=== PATIENT | male | born 1960 | race Caucasian/White ===

== ENCOUNTER 2016-05-02 15:10 | Observation (INO) | payer OTHER ==
--- NOTE | 2016-05-02 16:32 | ED PDOC ---
Arrival/HPI - General Historian: Patient - History of Present Illness Symptom Onset: Gradual Symptom Course: Worsening Activities at Onset: Rest <Muna Leone - Last Filed: 05/02/16 18:47> <Jameson Aguilar - Last Filed: 05/02/16 19:47> <Timothy Correia Dylan - Last Filed: 05/03/16 10:19> - General Chief Complaint: Abdominal Pain Time Seen by Provider: 05/02/16 15:48 - History of Present Illness Narrative History of Present Illness (Text): 05/02/16 16:24 56 M with no significant PMHx presented to [facility] ED with complaints of generalized weakness, sob, and LLQ abdominal pain. Pt states that he has been progressively feeling weaker over the past 3 months with associated LLQ pain that has also persisted for the past 3 months, however pt decided to come to ED today on account of episode of vomitting of nbnb emesis. He also noted that he has been experiencing black stools for the past 3 months. He also has complaints of rectal pain that also began approx 3 months ago. He describes a "pimple" near his rectum that seems to recur on a weekly basis, that "pops" and then comes back - this too was noticed at approximately 3 months ago. Pt admits to dizziness, headaches, nonproductive cough, loss of appetite, night sweats, llq pain and fatigue. Pt denied fever, chills, chest pains, palpitations, n/v/d/ c or urinary symptoms. PMHx: denies PSHx: Denies SHx: Lives in [place] with family, unemployed, admitted to [facility] x 40 yrs smoking tobacco history, Denied ETOH or illicit drug abuse Meds: Denies Allergies: NKDA No PMD (Muna Leone) Past Medical History - Infectious Disease Hx of Infectious Diseases: None - Cardiac Hx Cardiac Disorders: No - Pulmonary Hx Respiratory Disorders: No - Neurological Hx Neurological Disorder: No - HEENT Hx HEENT Disorder: No - Renal Hx Renal Disorder: No - Endocrine/Metabolic Hx Endocrine Disorders: No - Hematological/Oncological Hx Blood Disorders: No - Integumentary Hx Dermatological Disorder: No - Musculoskeletal/Rheumatological Hx Musculoskeletal Disorders: No - Gastrointestinal Hx Gastrointestinal Disorders: No - Genitourinary/Gynecological Hx Genitourinary Disorders: No - Psychiatric Hx Psychophysiologic Disorder: No Hx Substance Use: No - Anesthesia Hx Anesthesia: No Hx Anesthesia Reactions: No Hx Malignant Hyperthermia: No - Suicidal Assessment Feels Threatened In Home Enviroment: No <Muna Leone - Last Filed: 05/02/16 18:47> Family/Social History Family/Social History: No Known Family HX Smoking Status: Heavy Smoker > 10 Cigarettes Daily Hx Alcohol Use: No Hx Substance Use: No <Muna Leone - Last Filed: 05/02/16 18:47> Family/Social History: No Known Family HX <Timothy Correia Dylan - Last Filed: 05/03/16 10:19> Allergies/Home Meds <Muna Leone - Last Filed: 05/02/16 18:47> <Jameson Aguilar - Last Filed: 05/02/16 19:47> <Timothy Correia - Last Filed: 05/03/16 10:19> Allergies/Adverse Reactions: Allergies No Known Allergies Allergy (Verified 01/23/15 14:12) Review of Systems - Review of Systems Constitutional: Fatigue, Night Sweats Eyes: Normal ENT: Normal Respiratory: SOB, Cough Cardiovascular: Normal Gastrointestinal: Abdominal Pain (llq), Stool Changes, Nausea, Vomiting, Appetite Changes, Other (melena) Genitourinary Male: Normal Musculoskeletal: Normal Skin: Normal Neurological: Normal Endocrine: Normal Hemo/Lymphatic: Normal Psychiatric: Normal <Muna Leone - Last Filed: 05/02/16 18:47> Physical Exam Temperature: Afebrile Blood Pressure: Normal Pulse: Regular Respiratory Rate: Normal Appearance: Positive for: Well-Appearing, Non-Toxic, Comfortable Pain Distress: Mild Mental Status: Positive for: Alert and Oriented X 3 - Systems Exam Head: Present: Atraumatic, Normocephalic Pupils: Present: PERRL Extroacular Muscles: Present: EOMI Conjunctiva: Present: Normal Mouth: Present: Moist Mucous Membranes Neck: Present: Normal Range of Motion Respiratory/Chest: Present: Clear to Auscultation, Good Air Exchange. No: Respiratory Distress, Accessory Muscle Use Cardiovascular: Present: Regular Rate and Rhythm, Normal S1, S2. No: Murmurs Abdomen: Present: Normal Bowel Sounds. No: Tenderness, Distention, Peritoneal Signs Upper Extremity: Present: Normal Inspection. No: Cyanosis, Edema Lower Extremity: Present: Normal Inspection. No: Edema Neurological: Present: GCS=15, CN II-XII Intact, Speech Normal Skin: Present: Warm, Dry, Normal Color. No: Rashes Psychiatric: Present: Alert, Oriented x 3, Normal Insight, Normal Concentration <Muna Leone - Last Filed: 05/02/16 18:47> Vital Signs Temp Pulse Resp BP Pulse Ox 05/03/16 01:15 98.9 F 64 18 123/64 97 05/02/16 23:00 57 L 16 127/88 100 05/02/16 17:30 18 100 05/02/16 17:00 98.0 F 59 L 18 120/81 100 Medical Decision Making <Muna Leone - Last Filed: 05/02/16 18:47> <Jameson Aguilar - Last Filed: 05/02/16 19:47> <Timothy Correia - Last Filed: 05/03/16 10:19> ED Course and Treatment: 05/02/16 17:00 56 M presenting with generalized weakness, melena, and llq abdominal pains. -- CBC -- CMP -- Lipase -- IVF -- FOBT -- Zofran -- Protonix -- CT ABD with IV contrast -- EKG -- CXR -- UA/UCx -- Reassess and Dispo 05/02/16 18:10 Stool Guiac negative and routine labwork unremarkable. Pending CT Abdomen (Muna Leone) Seen and examined with resident. 56 y/o M p/w abdominal pain and black stool x months. Guaiac negative. Hb normal. Pending CT. Signed out to ER night team at change of shift. (Timothy Correia) - Lab Interpretations Lab Results: 05/02/16 17:45 05/02/16 17:45 Lab Results 05/02/16 17:45: WBC 9.3, RBC 4.76, Hgb 15.5, Hct 44.4, MCV 93.3, MCH 32.6, MCHC 34.9, RDW 12.9, Plt Count 295, MPV 8.8, Gran % 67.1, Lymph % (Auto) 27.2, Calvert % (Auto) 4.3, Eos % (Auto) 0.9 L, Baso % (Auto) 0.5, Gran # 6.21, Lymph # 2.5, Calvert # 0.4, Eos # 0.1, Baso # 0.05, Sodium 137, Potassium 4.2, Chloride 101, Carbon Dioxide 27, Anion Gap 13, BUN 23 H, Creatinine 0.9, Est GFR ( Amer ) > 60, Est GFR (Non-Af Amer) > 60, Random Glucose 98, Calcium 9.2, Total Bilirubin 1.1, AST 22, ALT 13, Alkaline Phosphatase 87, Total Protein 7.5, Albumin 3.9, Globulin 3.6, Albumin/Globulin Ratio 1.1, Lipase 126 - RAD Interpretation Radiology Orders: 05/02/16 16:46 ABDOMEN & PELVIS [ABD & PELVIS IV CONTRAST ONLY] [CT] Stat CHEST PORTABLE [RAD] Stat - EKG Interpretation EKG Interpretation (Text): 05/02/16 18:03 Sinus bradycardia with 55bpm with no ST changes (Vasu,Manit) - Medication Orders Current Medication Orders: Sodium Chloride (Sodium Chloride 0.9%) 1,000 mls @ 100 mls/hr IV .Q10H [facility] Last Admin: 05/03/16 01:34 Dose: 100 MLS/HR eMAR Start Stop Document 05/03/16 01:34 DALE (Rec: 05/03/16 01:34 Marilyn [id number]) Intravenous Solution Start Date 05/03/16 Start Time 01:34 Metoclopramide HCl (Reglan) 5 mg IVP ACHS [facility] Last Admin: 05/03/16 09:40 Dose: 5 MG IVP Administration Document 05/03/16 09:40 KAA (Rec: 05/03/16 09:40 KAA [id number]) Charges for Administration # of IVP Administrations 1 Ondansetron HCl (Zofran Inj) 4 mg IVP Q6H PRN PRN Reason: Nausea/Vomiting Pantoprazole Sodium (Protonix Inj) 40 mg IVP Q12 [facility] Last Admin: 05/03/16 09:44 Dose: 40 MG IVP Administration Document 05/03/16 09:44 KAA (Rec: 05/03/16 09:44 KAA [id number]) Charges for Administration # of IVP Administrations 1 Tramadol HCl (Ultram) 50 mg PO TID PRN PRN Reason: Pain, moderate (4-7) Discontinued Medications Bisacodyl (Dulcolax) 10 mg RC ONCE ONE Stop: 05/03/16 00:53 Last Admin: 05/03/16 01:43 Dose: Not Given Non-Admin Reason: Patient Refused Sodium Chloride (Sodium Chloride 0.9%) 1,000 mls @ 999 mls/hr IV .Q1H1M STA Stop: 05/02/16 17:46 Last Admin: 05/02/16 18:05 Dose: 999 MLS/HR eMAR Start Stop Document 05/02/16 18:05 EQ (Rec: 05/02/16 18:05 EQ [id number]) Intravenous Solution Start Date 05/02/16 Start Time 18:05 Iohexol (Omnipaque 350 100 Ml) Confirm Administered Dose 350 mg .ROUTE .STK-MED ONE Stop: 05/02/16 18:26 Ondansetron HCl (Zofran Inj) 4 mg IVP STAT STA Stop: 05/02/16 16:47 Last Admin: 05/02/16 18:05 Dose: 4 MG IVP Administration Document 05/02/16 18:05 EQ (Rec: 05/02/16 18:05 EQ [id number]) Charges for Administration # of IVP Administrations 1 Pantoprazole Sodium (Protonix Inj) 40 mg IVP STAT STA Stop: 05/02/16 16:47 Last Admin: 05/02/16 18:05 Dose: 40 MG IVP Administration Document 05/02/16 18:05 EQ (Rec: 05/02/16 18:05 EQ [id number]) Charges for Administration # of IVP Administrations 1 Polyethylene Glycol (Miralax) 17 gm PO STAT STA Stop: 05/03/16 00:53 Last Admin: 05/03/16 02:53 Dose: 17 GM Disposition/Present on Arrival - Present on Arrival Any Indicators Present on Arrival: No History of DVT/PE: No History of Uncontrolled Diabetes: No Urinary Catheter: No History of Decub. Ulcer: No History Surgical Site Infection Following: None <Muna Leone - Last Filed: 05/02/16 18:47> <Jameson Aguilar - Last Filed: 05/02/16 19:47> - Disposition Have Diagnosis and Disposition been Completed?: Yes Disposition Time: 19:00 <Timothy Correia - Last Filed: 05/03/16 10:19> - Disposition Diagnosis: Abdominal pain, Vomiting Disposition: HOSPITALIZED Patient Problems: Current Active Problems Problem Status Diagnosed Abdominal pain Acute Vomiting Acute Condition: STABLE
[2016-05-02] MEDS ORDERED: Sodium Chloride 0.9% 1,000 ML IV STA (16:46)
[2016-05-02 17:53] LABS: ADD MANUAL DIFF? NO
[2016-05-02 17:57] LABS: BASO # 0.05 K/mm3 (0.0-2.0); BASO % 0.5 % (0.0-3.0); EOS # 0.1 (0.0-0.7); EOS % 0.9 % (1.5-5.0); GRAN # 6.21 (1.4-6.5); GRAN % 67.1 % (50.0-68.0); HEMATOCRIT 44.4 % (42.0-52.0); LYMPH # 2.5 (1.2-3.4); LYMPH % 27.2 % (22.0-35.0); MEAN CELL VOLUME 93.3 fL (80.0-105.0); MEAN CORPUSCULAR HEMOGLOBIN 32.6 pg (25.0-35.0); MEAN CORPUSCULAR HGB CONC 34.9 g/dl (31.0-37.0); MEAN PLATELET VOLUME 8.8 fl (7.0-11.0); MONO # 0.4 (0.1-0.6); MONO % 4.3 % (1.0-6.0); PLATELET COUNT 295 10^3/uL (120.0-450.0); RED CELL DISTRIBUTION WIDTH 12.9 % (11.5-14.5); WHITE BLOOD COUNT 9.3 10^3/ul (4.5-11.0)
[2016-05-02 18:07] LABS: ALB/GLOB RATIO 1.1 (1.1-1.8); ALKALINE PHOSPHATASE 87 U/L (38-133); ALT/SGPT 13 U/L (7-56); AST/SGOT 22 U/L (15-59); BILIRUBIN,TOTAL 1.1 mg/dL (0.2-1.3); BLOOD UREA NITROGEN 23 mg/dL (7-21); CALCIUM 9.2 mg/dL (8.4-10.5); CARBON DIOXIDE 27 mmol/L (21-33); CHLORIDE 101 mmol/L (98-107); GFR AFRICAN-AMERICAN > 60; GLUCOSE,RANDOM 98 mg/dL (70-110); LIPASE 126 U/L (23-300); POTASSIUM 4.2 mmol/L (3.6-5.0); SODIUM 137 mmol/L (132-148); TOTAL PROTEIN 7.5 g/dL (5.8-8.3)
[2016-05-02] MEDS ORDERED: Iohexol 350 MG/100 ML VIAL ONE (18:25)
--- NOTE | 2016-05-02 19:30 | CARD ---
APPROVED REPORT EKG Measurement Heart [id number] <Conclusion> Sinus bradycardia Otherwise normal ECG
--- NOTE | 2016-05-02 20:50 | CT ---
EXAM: CT Abdomen and Pelvis With Intravenous Contrast. CLINICAL HISTORY: 56 years old, male; Pain; Abdominal pain; Localized; Left lower quadrant (llq); Additional info: Llq pain TECHNIQUE: Axial computed tomography images of the abdomen and pelvis with intravenous contrast. This CT exam was performed using one or more of the following dose reduction techniques: automated exposure control, adjustment of the mA and/or kV according to patient size, and/or use of iterative reconstruction technique. Coronal and sagittal reformatted images were created and reviewed. CONTRAST: 95 mL of omni 350 administered intravenously. EXAM DATE/TIME: 05/02/2016 4:46 PM COMPARISON: There are no prior studies for comparison. FINDINGS: Artifacts: Motion artifact degrades image quality. Lower thorax: Heart size is normal. There are coronary calcifications. There is minimal atelectasis and scarring at the lung bases. ABDOMEN: Liver: There is fatty infiltration of the liver. Gallbladder and bile ducts: unremarkable Pancreas: unremarkable Spleen: unremarkable Adrenals: unremarkable Kidneys and ureters: unremarkable Stomach and bowel: Stomach is incompletely distended. Rotation is normal. Small bowel is mildly distended with air. There is no obstruction. Appendix is unremarkable. Streak and motion limit evaluation of the colon. Colon is incompletely distended which limits evaluation. There is scattered diverticulosis Appendix: See stomach and bowel PELVIS: Bladder: unremarkable Reproductive: Prostate is mildly enlarged. Seminal vesicles are unremarkable. ABDOMEN and PELVIS: Intraperitoneal space: There is no free fluid.There is no free air. Bones/joints: There is compression fracture L1 with deformity of superior endplate. There degenerative changes greatest in the lower lumbar spine. Soft tissues: There is a nonobstructing left inguinal hernia containing colon. Vasculature: There are calcified phleboliths. Vascular structures are unremarkable. Lymph nodes: There is no pathologic adenopathy. IMPRESSION: Limited by streak and motion, no CT findings of appendicitis or diverticulitis; mildly distended small bowel more suggestive of ileus than obstruction; no acute solid visceral abnormality; L1 compression fracture, age indeterminant Additional findings as described above.
--- NOTE | 2016-05-02 21:29 | ED PDOC ---
Physical Exam Vital Signs Reviewed: Yes Vital Signs Temp Pulse Resp BP Pulse Ox 05/02/16 23:00 57 L 16 127/88 100 05/02/16 17:30 18 100 05/02/16 17:00 98.0 F 59 L 18 120/81 100 Temperature: Afebrile Blood Pressure: Normal Pulse: Regular Respiratory Rate: Normal Appearance: Positive for: Well-Appearing, Non-Toxic, Comfortable Pain Distress: None Mental Status: Positive for: Alert and Oriented X 3 Medical Decision Making ED Course and Treatment: 05/02/16 19:00 Case endorsed to me by Dr. Correia. Pt, no significant past medical history, presented for generalized weakness, melena, and LLQ abdominal pain. Pending CT Abdomen and Pelvis, re-assessment, and final disposition. 05/02/16 22:20 Reviewed radiology, CT Abdomen and Pelvis shows: Limited by streak and motion, no CT findings of appendicitis or diverticulitis; mildly distended small bowel more suggestive of ileus than obstruction; no acute solid visceral abnormality; L1 compression fracture, age indeterminant Additional findings as described above. 05/03/16 00:07 Case discussed with medical coding technician configuration management administrator, who is aware and agrees with plan. House physician paged. Case discussed with Dr. Costa, who is aware and agrees with plan. Accepts pt in to hospitalist service. Pt will go to [facility] observation for abdominal pain and vomiting. Pt is no acute distress. Discussed results and hospital observation plan with pt , who is aware and verbalizes understanding. - Lab Interpretations Lab Results: 05/02/16 17:45 05/02/16 17:45 Lab Results 05/02/16 17:45: WBC 9.3, RBC 4.76, Hgb 15.5, Hct 44.4, MCV 93.3, MCH 32.6, MCHC 34.9, RDW 12.9, Plt Count 295, MPV 8.8, Gran % 67.1, Lymph % (Auto) 27.2, Mccone % (Auto) 4.3, Eos % (Auto) 0.9 L, Baso % (Auto) 0.5, Gran # 6.21, Lymph # 2.5, Mccone # 0.4, Eos # 0.1, Baso # 0.05, Sodium 137, Potassium 4.2, Chloride 101, Carbon Dioxide 27, Anion Gap 13, BUN 23 H, Creatinine 0.9, Est GFR ( Amer ) > 60, Est GFR (Non-Af Amer) > 60, Random Glucose 98, Calcium 9.2, Total Bilirubin 1.1, AST 22, ALT 13, Alkaline Phosphatase 87, Total Protein 7.5, Albumin 3.9, Globulin 3.6, Albumin/Globulin Ratio 1.1, Lipase 126 - RAD Interpretation Narrative RAD Interpretations (Text): CT Abdomen and Pelvis shows: Artifacts: Motion artifact degrades image quality. Lower thorax: Heart size is normal. There are coronary calcifications. There is minimal atelectasis and scarring at the lung bases. ABDOMEN: Liver: There is fatty infiltration of the liver. Gallbladder and bile ducts: unremarkable Pancreas: unremarkable Spleen: unremarkable Adrenals: unremarkable Kidneys and ureters: unremarkable Stomach and bowel: Stomach is incompletely distended. Rotation is normal. Small bowel is mildly distended with air. There is no obstruction. Appendix is unremarkable. Streak and motion limit evaluation of the colon. Colon is incompletely distended which limits evaluation. There is scattered diverticulosis Appendix: See stomach and bowel PELVIS: Bladder: unremarkable Reproductive: Prostate is mildly enlarged. Seminal vesicles are unremarkable. ABDOMEN and PELVIS: Intraperitoneal space: There is no free fluid.There is no free air. Bones/joints: There is compression fracture L1 with deformity of superior endplate. There degenerative changes greatest in the lower lumbar spine. Soft tissues: There is a nonobstructing left inguinal hernia containing colon. Vasculature: There are calcified phleboliths. Vascular structures are unremarkable. Lymph nodes: There is no pathologic adenopathy. IMPRESSION: Limited by streak and motion, no CT findings of appendicitis or diverticulitis; mildly distended small bowel more suggestive of ileus than obstruction; no acute solid visceral abnormality; L1 compression fracture, age indeterminant Additional findings as described above. Radiology Orders: 05/02/16 16:46 ABDOMEN & PELVIS [ABD & PELVIS IV CONTRAST ONLY] [CT] Stat CHEST PORTABLE [RAD] Stat Hydroelectric Plant Operator: Radiologist - Medication Orders Current Medication Orders: Discontinued Medications Sodium Chloride (Sodium Chloride 0.9%) 1,000 mls @ 999 mls/hr IV .Q1H1M STA Stop: 05/02/16 17:46 Last Admin: 05/02/16 18:05 Dose: 999 MLS/HR eMAR Start Stop Document 05/02/16 18:05 EQ (Rec: 05/02/16 18:05 EQ [id number]) Intravenous Solution Start Date 05/02/16 Start Time 18:05 Iohexol (Omnipaque 350 100 Ml) Confirm Administered Dose 350 mg .ROUTE .STK-MED ONE Stop: 05/02/16 18:26 Ondansetron HCl (Zofran Inj) 4 mg IVP STAT STA Stop: 05/02/16 16:47 Last Admin: 05/02/16 18:05 Dose: 4 MG IVP Administration Document 05/02/16 18:05 EQ (Rec: 05/02/16 18:05 EQ [id number]) Charges for Administration # of IVP Administrations 1 Pantoprazole Sodium (Protonix Inj) 40 mg IVP STAT STA Stop: 05/02/16 16:47 Last Admin: 05/02/16 18:05 Dose: 40 MG IVP Administration Document 05/02/16 18:05 EQ (Rec: 05/02/16 18:05 EQ [id number]) Charges for Administration # of IVP Administrations 1 Disposition/Present on Arrival - Present on Arrival Any Indicators Present on Arrival: No History of DVT/PE: No History of Uncontrolled Diabetes: No Urinary Catheter: No History of Decub. Ulcer: No History Surgical Site Infection Following: None - Disposition Have Diagnosis and Disposition been Completed?: Yes Diagnosis: Abdominal pain, Vomiting Disposition: HOSPITALIZED Disposition Time: 23:49 Patient Plan: Observation Patient Problems: Current Active Problems Problem Status Diagnosed Abdominal pain Acute Vomiting Acute Condition: STABLE Referrals: PCP,NO [Primary Care Provider] - Follow up with primary
[2016-05-03] MEDS ORDERED: POLYETHYLENE GLYCOL 3350 17 GM/Dose PACKET PO STA (00:52)
[2016-05-03] MEDS ORDERED: Sodium Chloride 0.9% 1,000 ML IV SCH (01:00)
[2016-05-03 03:53] VITALS: RESP 20; BMI 18.4
--- NOTE | 2016-05-03 06:59 | CP.PCM.HP ---
History of Present Illness - History of Present Illness History of Present Illness: CC: weakness, abd pain, emesis HPI: This is a 56 yo [place] M with no significant PMH who presented general weakness, abdominal pain, and 1 episode of non-bloody non-bilious emesis. He complains of general poor appetite, constipation, intermittently dark stools, and intermittent rectal pain, but denies blood with stool. He denies chest pain , shortness of breath or pain with breathing, emesis prior to day of presentation, or focal weakness. He denies taking any medications to help with the constipation. Reports he moved his bowels today, last BM before was 4-5 days prior. Normally moves his bowels every 3-4 days. Denies dysuria, hematuria. PMHx: Denies PSHx: Denies SHx: Admits tobacco (cigarettes 1 ppd x 40 yrs), Denies ETOH/illicits PMD: None Present on Admission - Present on Admission Any Indicators Present on Admission: No History of DVT/PE: No History of Uncontrolled Diabetes: No Review of Systems - Constitutional Constitutional: Weakness. absent: Chills, Fever - EENT Eyes: absent: Blurred Vision, Change in Vision, Loss of Vision Ears: absent: Dizziness Nose/Mouth/Throat: absent: Sore Throat, Neck Pain - Cardiovascular Cardiovascular: absent: Chest Pain, Dyspnea, Syncope - Respiratory Respiratory: absent: Cough, Dyspnea, Pain on Inspiration - Gastrointestinal Gastrointestinal: Abdominal Pain (diffuse, more prominent today), Constipation ( BM today, last 4-5 days prior, normally 3-4 days per BM, hard black stools), Nausea, Vomiting (1x episode non-bloody, non-bilious; no prior episodes). absent: Diarrhea, Hematochezia, Melena - Genitourinary Genitourinary: absent: Difficulty Urinating, Dysuria, Flank Pain, Hematuria - Musculoskeletal Musculoskeletal: absent: Back Pain, Numbness, Radiating Pain into Limb - Integumentary Integumentary: absent: Pruritus, Rash - Neurological Neurological: Weakness. absent: Dizziness, Focal Weakness, Loss of Vision, Syncope, Other Visual Disturbances - Psychiatric Psychiatric: Anxiety - Endocrine Endocrine: absent: Fatigue, Palpitations Past Patient History - Infectious Disease Hx of Infectious Diseases: None - Past Social History Smoking Status: Current Some Days Smoker - CARDIAC Hx Cardiac Disorders: No - PULMONARY Hx Respiratory Disorders: No - NEUROLOGICAL Hx Neurological Disorder: No - HEENT Hx HEENT Problems: No - RENAL Hx Chronic Kidney Disease: No - ENDOCRINE/METABOLIC Hx Endocrine Disorders: No - HEMATOLOGICAL/ONCOLOGICAL Hx Blood Disorders: No - INTEGUMENTARY Hx Dermatological Problems: No - MUSCULOSKELETAL/RHEUMATOLOGICAL Hx Falls: No - GASTROINTESTINAL Hx Gastrointestinal Disorders: No - GENITOURINARY/GYNECOLOGICAL Hx Genitourinary Disorders: No - PSYCHIATRIC Hx Psychophysiologic Disorder: No - SURGICAL HISTORY Hx Surgeries: No - ANESTHESIA Hx Anesthesia: No Hx Anesthesia Reactions: No Hx Malignant Hyperthermia: No Meds Allergies/Adverse Reactions: Allergies Allergy/AdvReac Type Severity Reaction Status Date / Time No Known Allergies Allergy Verified 01/23/15 14:12 Physical Exam - Constitutional Appears: Well, Non-toxic, No Acute Distress - Head Exam Head Exam: ATRAUMATIC, NORMAL INSPECTION, NORMOCEPHALIC - Eye Exam Eye Exam: EOMI, Normal appearance, PERRL. absent: Conjunctival injection, Scleral icterus Pupil Exam: NORMAL ACCOMODATION, PERRL. absent: Fixed, Irregular, Unequal - ENT Exam ENT Exam: Mucous Membranes Moist - Neck Exam Neck exam: Positive for: Full Rom - Respiratory Exam Respiratory Exam: Clear to Auscultation Bilateral, NORMAL BREATHING PATTERN. absent: Accessory Muscle Use, Chest Wall Tenderness, Decreased Breath Sounds, Rales, Rhonchi, Wheezes - Cardiovascular Exam Cardiovascular Exam: REGULAR RHYTHM, RRR, +S1, +S2. absent: Bradycardia, Tachycardia, Irregular Rhythm, +S4 - GI/Abdominal Exam GI & Abdominal Exam: Firm (mutiple palpable/discrete loops of bowel), Normal Bowel Sounds, Soft, Tenderness (diffuse tenderness to palpation, more prominent on the left side; no flank pain bilaterally). absent: Diminished Bowel Sounds, Distended, Hyperactive Bowel Sounds, Hypoactive Bowel Sounds, Rigid - Extremities Exam Extremities exam: Positive for: normal capillary refill, normal inspection, pedal pulses present. Negative for: calf tenderness, pedal edema, tenderness - Back Exam Back exam: absent: CVA tenderness (L), CVA tenderness (R), tenderness, vertebral tenderness - Neurological Exam Neurological exam: Alert, Oriented x3 - Psychiatric Exam Psychiatric exam: Anxious, Normal Affect - Skin Skin Exam: Dry, Intact, Normal Color, Warm Additional comments: not diaphoretic Results - Vital Signs Recent Vital Signs: Last Vital Signs Temp 97.9 F 03/23/17 03:35 Pulse 53 L 05/03/16 03:35 Resp 20 05/03/16 03:35 BP 100/60 05/03/16 03:35 Pulse Ox 97 05/03/16 01:15 - Labs Result Diagrams: 05/02/16 17:45 05/02/16 17:45 Assessment & Plan - Assessment and Plan (Free Text) Assessment: This is a 56 yo [place] M with no significant PMH who presented general weakness , abdominal pain, and 1 episode of non-bloody non-bilious emesis. He is being admitted for chronic abdominal pain and constipation with new onset emesis. Plan: 1) Abdominal pain with new onset emesis -diverticulitis vs 2/2 constipation vs obstruction vs appendicitis -CT abd/pelvis obtained in ED, notable for distended small bowel more likely ileus than obstruction, no acute solid visceral abnormality/diverticulitis/ appendicitis -Dulcolax suppository x1, Miralax 17g daily -Reglan for ileus, Zofran PRN for nausea/emesis -NPO for bowel rest, NS IVF at 100cc/hr -Ultram PRN for pain, avoid stronger opioids due to worsening of ileus/ constipation -Protonix IV q12 -guaic negative, and Hgb 15.5 with normal MCV, so unlikely GI bleeding -LFTs wnl Dispo: Med/Surg obs, bowel rest and med regimen to relieve constipation FEN: NPO for bowel rest, NS IVF 100cc/hr Access: Peripheral IV Consult: N/A Ppx: Protonix for GI, SCDs for DVT Patient seen, reviewed, and discussed with attending, Dr. Costa. - Date & Time Date: 05/03/16 Time: 07:40 Decision To Admit - Pt Status Changed To: Hospital Disposition Of: Observation - . Bed Request Type: Med/Surg
--- NOTE | 2016-05-03 08:26 | RAD ---
HISTORY: sob COMPARISON: No prior. FINDINGS: LUNGS: No active pulmonary disease. PLEURA: No significant pleural effusion identified, no pneumothorax apparent. CARDIOVASCULAR: Normal. OSSEOUS STRUCTURES: No significant abnormalities. VISUALIZED UPPER ABDOMEN: Normal. OTHER FINDINGS: None. IMPRESSION: No evidence of acute pulmonary disease. Baseline study. If indicated further assessment by CT may be obtained.
[2016-05-03 08:48] LABS: ADD MANUAL DIFF? NO
[2016-05-03 08:52] LABS: BASO # 0.05 K/mm3 (0.0-2.0); BASO % 0.7 % (0.0-3.0); EOS # 0.1 (0.0-0.7); EOS % 1.5 % (1.5-5.0); GRAN # 4.98 (1.4-6.5); GRAN % 66.2 % (50.0-68.0); LYMPH % 26.1 % (22.0-35.0); MEAN CELL VOLUME 94.3 fL (80.0-105.0); MEAN CORPUSCULAR HGB CONC 33.9 g/dl (31.0-37.0); MEAN PLATELET VOLUME 8.7 fl (7.0-11.0); MONO # 0.4 (0.1-0.6); MONO % 5.5 % (1.0-6.0); PLATELET COUNT 262 10^3/uL (120.0-450.0); WHITE BLOOD COUNT 7.5 10^3/ul (4.5-11.0)
[2016-05-03 08:54] VITALS: BP 105/65; PULSE 55; TEMP 97.5; O2SAT 98
[2016-05-03 09:28] LABS: ALB/GLOB RATIO 1.1 (1.1-1.8); ALKALINE PHOSPHATASE 75 U/L (38-133); ALT/SGPT 13 U/L (7-56); AST/SGOT 19 U/L (15-59); BILIRUBIN,TOTAL 1.5 mg/dL (0.2-1.3); BLOOD UREA NITROGEN 17 mg/dL (7-21); CALCIUM 8.2 mg/dL (8.4-10.5); CARBON DIOXIDE 25 mmol/L (21-33); CHLORIDE 106 mmol/L (98-107); GFR AFRICAN-AMERICAN > 60; GLUCOSE,RANDOM 84 mg/dL (70-110); MAGNESIUM 2.1 mg/dL (1.7-2.2); PHOSPHOROUS 3.4 mg/dL (2.5-4.5); POTASSIUM 4.6 mmol/L (3.6-5.0); SODIUM 139 mmol/L (132-148); TOTAL PROTEIN 6.6 g/dL (5.8-8.3)
--- NOTE | 2016-05-03 17:33 | CP.PCM.DIS ---
<Maciej Penny - Last Filed: 05/05/16 21:33> Provider - Provider Date of Admission: 05/02/16 23:50 Attending physician: Nany Templeton MD Primary care physician: NO PRIMARY CARE PROVIDER Time Spent in preparation of Discharge (in minutes): 45 Hospital Course - Lab Results Lab Results: Most Recent Lab Values WBC 7.5 10^3/ul (4.5-11.0) 05/03/16 08:40 RBC 4.35 10^6/uL (3.5-6.1) 05/03/16 08:40 Hgb 13.9 gm/dL (14.0-18.0) L 05/03/16 08:40 Hct 41.0 % (42.0-52.0) L 05/03/16 08:40 MCV 94.3 fL (80.0-105.0) 05/03/16 08:40 MCH 32.0 pg (25.0-35.0) 05/03/16 08:40 MCHC 33.9 g/dl (31.0-37.0) 05/03/16 08:40 RDW 13.0 % (11.5-14.5) 05/03/16 08:40 Plt Count 262 10^3/uL (120.0-450.0) 05/03/16 08:40 MPV 8.7 fl (7.0-11.0) 05/03/16 08:40 Gran % 66.2 % (50.0-68.0) 05/03/16 08:40 Lymph % (Auto) 26.1 % (22.0-35.0) 05/03/16 08:40 [place] % (Auto) 5.5 % (1.0-6.0) 05/03/16 08:40 Eos % (Auto) 1.5 % (1.5-5.0) 05/03/16 08:40 Baso % (Auto) 0.7 % (0.0-3.0) 05/03/16 08:40 Gran # 4.98 (1.4-6.5) 05/03/16 08:40 Lymph # 2.0 (1.2-3.4) 05/03/16 08:40 [place] # 0.4 (0.1-0.6) 05/03/16 08:40 Eos # 0.1 (0.0-0.7) 05/03/16 08:40 Baso # 0.05 K/mm3 (0.0-2.0) 05/03/16 08:40 Sodium 139 mmol/L (132-148) 05/03/16 08:40 Potassium 4.6 mmol/L (3.6-5.0) 05/03/16 08:40 Chloride 106 mmol/L (98-107) 05/03/16 08:40 Carbon Dioxide 25 mmol/L (21-33) 05/03/16 08:40 Anion Gap 13 (10-20) 05/03/16 08:40 BUN 17 mg/dL (7-21) 05/03/16 08:40 Creatinine 0.8 mg/dL (0.5-1.4) 05/03/16 08:40 Est GFR ( Amer) > 60 05/03/16 08:40 Est GFR (Non-Af Amer) > 60 05/03/16 08:40 Random Glucose 84 mg/dL (70-110) 05/03/16 08:40 Calcium 8.2 mg/dL (8.4-10.5) L 05/03/16 08:40 Phosphorus 3.4 mg/dL (2.5-4.5) 05/03/16 08:40 Magnesium 2.1 mg/dL (1.7-2.2) 05/03/16 08:40 Total Bilirubin 1.5 mg/dL (0.2-1.3) H 05/03/16 08:40 AST 19 U/L (15-59) 05/03/16 08:40 ALT 13 U/L (7-56) 05/03/16 08:40 Alkaline Phosphatase 75 U/L (38-133) 05/03/16 08:40 Total Protein 6.6 g/dL (5.8-8.3) 05/03/16 08:40 Albumin 3.4 g/dL (3.0-4.8) 05/03/16 08:40 Globulin 3.2 gm/dL 05/03/16 08:40 Albumin/Globulin Ratio 1.1 (1.1-1.8) 05/03/16 08:40 Lipase 126 U/L (23-300) 05/02/16 17:45 - Hospital Course Hospital Course: Upon Admission: 56 yo [place] M with no significant PMH who presented general weakness, abdominal pain, and 1 episode of non-bloody non-bilious emesis. Patient reported poor appetite, constipation, intermittent dark stools and rectal pain for 3 months. In the ED, CT abdomen/pelvis showed questionable ileus. Patient was kept NPO overnight. The next morning he reported passing flatus. Clear liquid diet was started and patient reported abdominal pain had resolved and he was able to tolerate PO with no additional complaints. He had normal BM with no complaints. Stool was normal in caliber with no hematochezia. Rectal pain was evaluated with MINDI and revealed no mass and no blood. Patient states intermittent discharge perirectal in the past; no evidence of abscess or collection at this time. Patient was told to follow up with outpatient GI. Patient was deemed stable for discharge with close outpatient followup with PMD. Patient to return to [facility] and told to follow up with GI for outpatient screening colonoscopy. Patient understands and agrees with plan and all questions were answered. 1) Abdominal pain: resolved. Follow up with GI for outpatient screening colonoscopy. Upon Discharge: Patient is discharged as per Dr. Templeton 1. Follow up with [facility] clinic within one week. Call for appointment 2. Follow up with GI clinic, Dr. Hernandez, call for appointment 3. Advance diet slowly as tolerated. Zofran 4mg q6h prn nausea ordered. (Sent to [facility] pharmacy) 4. Return to the ER with any concerning symptoms New Prescriptions: Zofran 4mg q6h prn Nausea #20/0 Miralax 17g in 4-8oz of water PO once Daily for 5 days Discharge Exam - Head Exam Head Exam: ATRAUMATIC, NORMAL INSPECTION, NORMOCEPHALIC - Eye Exam Eye Exam: EOMI, Normal appearance, PERRL. absent: Scleral icterus Pupil Exam: PERRL - ENT Exam ENT Exam: Mucous Membranes Moist - Respiratory Exam Respiratory Exam: Clear to PA & Lateral, NORMAL BREATHING PATTERN, UNREMARKABLE. absent: Wheezes, Respiratory Distress - Cardiovascular Exam Cardiovascular Exam: REGULAR RHYTHM, RRR, +S1, +S2. absent: JVD - GI/Abdominal Exam GI & Abdominal Exam: Normal Bowel Sounds, Soft, Unremarkable. absent: Tenderness - Rectal Exam Rectal Exam: NORMAL INSPECTION. absent: Black Stool Additional comments: No Masses. No discharge - Extremities Exam Extremities exam: normal inspection - Back Exam Back exam: NORMAL INSPECTION - Neurological Exam Neurological exam: Alert, CN II-XII Intact, Oriented x3, Reflexes Normal - Psychiatric Exam Psychiatric exam: Normal Affect, Normal Mood - Skin Skin Exam: Dry, Intact, Normal Color, Warm Discharge Plan - Discharge Medications Prescriptions: Polyethylene Glycol 3350 [Miralax] 17 gm PO DAILY #5 powd.pack Ondansetron ODT [Zofran ODT] 4 mg PO Q6 #20 odt - Follow Up Plan Condition: STABLE Disposition: HOME/ ROUTINE Instructions: Acute Nausea and Vomiting (DC), Acute Abdominal Pain (DC), Ileus (DC) Additional Instructions: Patient is discharged as per Dr. Templeton 1. Follow up with [facility] clinic within one week. Call for appointment 2. Follow up with GI clinic, Dr. Hernandez, call for appointment 3. Advance diet slowly as tolerated. Zofran 4mg q6h prn nausea ordered. (Sent to [facility] pharmacy) 4. Return to the ER with any concerning symptoms New Prescriptions: Zofran 4mg q6h prn Nausea #20/0 Miralax 17g in 4-8oz of water PO once Daily for 5 days Referrals: [facility] [Outside] Mary DE LA TORRE,MD Darion [Medical Doctor] - PCP,NO [Primary Care Provider] - <Jareth DE LA TORRE,Nany - Last Filed: 05/06/16 12:33> Provider - Provider Date of Admission: 05/02/16 23:50 Attending physician: Nany Templeton MD Primary care physician: NO PRIMARY CARE PROVIDER Hospital Course - Lab Results Lab Results: Most Recent Lab Values WBC 7.5 10^3/ul (4.5-11.0) 05/03/16 08:40 RBC 4.35 10^6/uL (3.5-6.1) 05/03/16 08:40 Hgb 13.9 gm/dL (14.0-18.0) L 05/03/16 08:40 Hct 41.0 % (42.0-52.0) L 05/03/16 08:40 MCV 94.3 fL (80.0-105.0) 05/03/16 08:40 MCH 32.0 pg (25.0-35.0) 05/03/16 08:40 MCHC 33.9 g/dl (31.0-37.0) 05/03/16 08:40 RDW 13.0 % (11.5-14.5) 05/03/16 08:40 Plt Count 262 10^3/uL (120.0-450.0) 05/03/16 08:40 MPV 8.7 fl (7.0-11.0) 05/03/16 08:40 Gran % 66.2 % (50.0-68.0) 05/03/16 08:40 Lymph % (Auto) 26.1 % (22.0-35.0) 05/03/16 08:40 [place] % (Auto) 5.5 % (1.0-6.0) 05/03/16 08:40 Eos % (Auto) 1.5 % (1.5-5.0) 05/03/16 08:40 Baso % (Auto) 0.7 % (0.0-3.0) 05/03/16 08:40 Gran # 4.98 (1.4-6.5) 05/03/16 08:40 Lymph # 2.0 (1.2-3.4) 05/03/16 08:40 [place] # 0.4 (0.1-0.6) 05/03/16 08:40 Eos # 0.1 (0.0-0.7) 05/03/16 08:40 Baso # 0.05 K/mm3 (0.0-2.0) 05/03/16 08:40 Sodium 139 mmol/L (132-148) 05/03/16 08:40 Potassium 4.6 mmol/L (3.6-5.0) 05/03/16 08:40 Chloride 106 mmol/L (98-107) 05/03/16 08:40 Carbon Dioxide 25 mmol/L (21-33) 05/03/16 08:40 Anion Gap 13 (10-20) 05/03/16 08:40 BUN 17 mg/dL (7-21) 05/03/16 08:40 Creatinine 0.8 mg/dL (0.5-1.4) 05/03/16 08:40 Est GFR ( Amer) > 60 05/03/16 08:40 Est GFR (Non-Af Amer) > 60 05/03/16 08:40 Random Glucose 84 mg/dL (70-110) 05/03/16 08:40 Calcium 8.2 mg/dL (8.4-10.5) L 05/03/16 08:40 Phosphorus 3.4 mg/dL (2.5-4.5) 05/03/16 08:40 Magnesium 2.1 mg/dL (1.7-2.2) 05/03/16 08:40 Total Bilirubin 1.5 mg/dL (0.2-1.3) H 05/03/16 08:40 AST 19 U/L (15-59) 05/03/16 08:40 ALT 13 U/L (7-56) 05/03/16 08:40 Alkaline Phosphatase 75 U/L (38-133) 05/03/16 08:40 Total Protein 6.6 g/dL (5.8-8.3) 05/03/16 08:40 Albumin 3.4 g/dL (3.0-4.8) 05/03/16 08:40 Globulin 3.2 gm/dL 05/03/16 08:40 Albumin/Globulin Ratio 1.1 (1.1-1.8) 05/03/16 08:40 Lipase 126 U/L (23-300) 05/02/16 17:45 Attending/Attestation - Attestation I have personally seen and examined this patient.: Yes I have fully participated in the care of the patient.: Yes I have reviewed all pertinent clinical information, including history, physical exam and plan: Yes Notes (Text): Patient was seen and examined with vice president medical affairs .Agreed with resident assessment and plan. 56 yrs old male was admitted with abdominal pain and possible ileus, abdmonla examination was normal, no abdominal distension, had good bowel sound, was started on oral feeding, tolerated well, patient has chronic constipation and was started on laxative,Hemoglobin is stable, will need out patient Colonoscopy as he is more than 50, has constipation.this was discussed in detail with him. Management plan was discussed in detail with patient Education was provided.
== END 2016-05-03 18:52 | disposition home or self-care (01) ==
LOC: ED 15:10 → ERH 23:50 → 5RSO 05-03 02:24
PROVIDERS: ADMIT Internal Medicine; ATTEND Internal Medicine
DX: R10.32 Left lower quadrant pain (principal); R11.10 Vomiting, unspecified; R53.1 Weakness; K59.00 Constipation, unspecified
CPT/HCPCS: 36415; 71010; 74177; 80053; 83690; 83735; 84100; 85025; 93005; 96374; 96375; 96376; 99285; C9113; G0378; J2405; J2765; J7040; Q9967

== ENCOUNTER 2016-08-21 22:46 | Inpatient (IN) | payer MEDICAID, OTHER ==
[2016-08-21] MEDS ORDERED: Sodium Chloride 0.9% 1,000 ML IV STA (23:45)
[2016-08-21] MEDS ORDERED: Famotidine 20mg/50ml 20 MG/50 ML BAG IVPB STA (23:45)
--- NOTE | 2016-08-21 23:47 | ED PDOC ---
Arrival/HPI <Jameson Aguilar - Last Filed: 08/22/16 00:52> - General Historian: Patient - History of Present Illness Time/Duration: Other (2 weeks) Quality: Aching Context: Home <Juan Antonio Krishnan - Last Filed: 08/29/16 21:49> - General Chief Complaint: Abdominal Pain Time Seen by Provider: 08/21/16 22:52 - History of Present Illness Narrative History of Present Illness (Text): 08/21/16 23:43 This 56 yo male with pmh tobacco use, presents to this ED c/o abdominal pain, cough, rhinorrhea, sore throat x 2 week. Pain worsen today. Patient admits pmh constipation. Denies sob, cp, n/v/d. Patient admits weight loss x 4 months, at least 15 lbs (Juan Antonio Krishnan) Past Medical History - Provider Review Nursing Documentation Reviewed: Yes - Infectious Disease Hx of Infectious Diseases: None - Cardiac Hx Cardiac Disorders: No - Pulmonary Hx Respiratory Disorders: No - Neurological Hx Neurological Disorder: No - HEENT Hx HEENT Disorder: No - Renal Hx Renal Disorder: No - Endocrine/Metabolic Hx Endocrine Disorders: No - Hematological/Oncological Hx Blood Disorders: No - Integumentary Hx Dermatological Disorder: No - Musculoskeletal/Rheumatological Hx Falls: No - Gastrointestinal Hx Gastrointestinal Disorders: No - Genitourinary/Gynecological Hx Genitourinary Disorders: No - Psychiatric Hx Psychophysiologic Disorder: No Hx Substance Use: No - Anesthesia Hx Anesthesia: No Hx Anesthesia Reactions: No Hx Malignant Hyperthermia: No - Suicidal Assessment Feels Threatened In Home Enviroment: No <Juan Antonio Krishnan - Last Filed: 08/29/16 21:49> Family/Social History - Physician Review Nursing Documentation Reviewed: Yes Family/Social History: No Known Family HX Smoking Status: Current Some Days Smoker Hx Alcohol Use: No Hx Substance Use: No <Juan Antonio Krishnan - Last Filed: 08/29/16 21:49> Allergies/Home Meds <Jameson Aguilar - Last Filed: 08/22/16 00:52> <Juan Antonio Krishnan - Last Filed: 08/29/16 21:49> Allergies/Adverse Reactions: Allergies No Known Allergies Allergy (Verified 01/23/15 14:12) Review of Systems - Review of Systems Constitutional: Other (weight loss). absent: Fatigue, Weight Change, Fevers Eyes: Normal ENT: Sore Throat, Rhinorrhea Respiratory: Cough. absent: Wheezing Cardiovascular: Normal. absent: Chest Pain, Palpitations Gastrointestinal: Abdominal Pain. absent: Nausea, Vomiting Genitourinary Male: Normal Musculoskeletal: Normal Skin: Normal Neurological: Normal Endocrine: Normal Hemo/Lymphatic: Normal Psychiatric: Normal <Krishnan,Nah P - Last Filed: 08/29/16 21:49> Physical Exam Temperature: Afebrile Blood Pressure: Normal Pulse: Regular Respiratory Rate: Normal Appearance: Positive for: Well-Appearing, Non-Toxic, Comfortable Pain Distress: None Mental Status: Positive for: Alert and Oriented X 3 - Systems Exam Head: Present: Atraumatic, Normocephalic Pupils: Present: PERRL Extroacular Muscles: Present: EOMI Conjunctiva: Present: Normal Mouth: Present: Moist Mucous Membranes Neck: Present: Normal Range of Motion Respiratory/Chest: Present: Clear to Auscultation, Good Air Exchange. No: Respiratory Distress, Accessory Muscle Use, Wheezes, Retracting, Rhonchi Cardiovascular: Present: Regular Rate and Rhythm, Normal S1, S2. No: Murmurs Abdomen: Present: Tenderness (mild left UQ, and LLQ tenderness), Normal Bowel Sounds. No: Distention, Peritoneal Signs, Rebound, Guarding Back: Present: Normal Inspection. No: CVA Tenderness Upper Extremity: Present: Normal Inspection, Normal ROM, NORMAL PULSES, Neurovascularly Intact, Capillary Refill < 2s. No: Cyanosis, Edema Lower Extremity: Present: Normal Inspection, NORMAL PULSES, Normal ROM, Neurovascularly Intact, Capillary Refill < 2 s. No: Edema, CALF TENDERNESS Neurological: Present: GCS=15, CN II-XII Intact, Speech Normal, Motor Func Grossly Intact, Normal Sensory Function, Normal Cerebellar Funct, Gait Normal, Memory Normal Skin: Present: Warm, Dry, Normal Color. No: Rashes Psychiatric: Present: Alert, Oriented x 3, Normal Insight, Normal Concentration <Krishnan,Nahim P - Last Filed: 08/29/16 21:49> Vital Signs Temp Pulse Resp BP Pulse Ox 08/22/16 02:43 19 99 08/22/16 01:17 98.4 F 63 16 101/56 L 100 08/21/16 23:07 98.4 F 81 16 140/56 L 96 Medical Decision Making <LaurenJameson - Last Filed: 08/22/16 00:52> Re-evaluation Time: 02:04 Reassessment Condition: Re-examined, Improving,but remains with symptoms - Lab Interpretations I have reviewed the lab results: Yes Interpretation: No clinic. lab abnormalty (except for leukocytosis) <Juan Antonio Krishnan - Last Filed: 08/29/16 21:49> ED Course and Treatment: 08/22/16 02:03 I spoke with medical education manager regarding ct results, elevated wbc, and patient history , symptoms. He said Dr. Costa is next. I spoke with Dr. Costa, who agrees with plan for admission (Juan Antonio Krishnan) - Lab Interpretations Lab Results: 08/22/16 00:00 08/22/16 00:00 Lab Results 08/22/16 00:00: Sodium 141, Potassium 4.1, Chloride 104, Carbon Dioxide 27, Anion Gap 14, BUN 13, Creatinine 0.9, Est GFR ( Amer) > 60, Est GFR (Non- Af Amer) > 60, Random Glucose 108, Calcium 9.4, Total Bilirubin 0.9, AST 29, ALT 24, Alkaline Phosphatase 93, Total Protein 7.4, Albumin 4.1, Globulin 3.4, Albumin/Globulin Ratio 1.2, Amylase 79, Lipase 65 08/22/16 00:00: Urine Color Yellow, Urine Appearance Clear, Urine pH 6.0, Ur Specific [place] 1.020, Urine Protein Negative, Urine Glucose (UA) Negative, Urine Ketones Trace H, Urine Blood Negative, Urine Nitrate Negative, Urine Bilirubin Negative, Urine Urobilinogen 0.2, Ur Leukocyte Esterase Negative 08/22/16 00:00: WBC 12.8 H D, RBC 4.38, Hgb 14.2, Hct 41.4 L, MCV 94.5, MCH 32.4 , MCHC 34.3, RDW 12.9, Plt Count 316, MPV 8.7, Gran % 78.3 H, Lymph % (Auto) 14.5 L, [place] % (Auto) 6.3 H, Eos % (Auto) 0.6 L, Baso % (Auto) 0.3, Gran # 9.99 H, Lymph # 1.9, [place] # 0.8 H, Eos # 0.1, Baso # 0.04 - RAD Interpretation Narrative RAD Interpretations (Text): 08/22/16 02:10 [facility] [address] [place] [address] Tel. no. Patient Name: ERNIE CAROLINA Pt. Address: [address] [place] [address]. Rec #: [id number] [place] [address]: Juan Antonio Krishnan PA-C Pt Order Location: ED : 1960 Male Age: 56 Order #: [id number] Reason for exam: left side abdominal pain CT Scan ABD PELVIS IV CONTRAST ONLY Exam Date: 08/21/16 This imaging exam was performed at [facility] EXAM: CT Abdomen and Pelvis With Intravenous Contrast CLINICAL HISTORY: 56 years old, male; Pain; Abdominal pain; Flank; Left; Additional info: Left side abdominal pain TECHNIQUE: Axial computed tomography images of the abdomen and pelvis with intravenous contrast. This CT exam was performed using one or more of the following dose reduction techniques: automated exposure control, adjustment of the mA and/or kV according to patient size, and/or use of iterative reconstruction technique. Coronal and sagittal reformatted images were created and reviewed. CONTRAST: 96 mL of OMNI 350 administered intravenously. COMPARISON: CT - ABD PELVIS IV CONTRAST ONLY 05/02/2016 7:00:32 PM FINDINGS: Lower thorax: Interval enlargement of the right lower lobe pulmonary nodule seen on prior examination, now measuring 19 mm in anterior posterior dimension (series 4, image 19). ABDOMEN: Liver: The liver is enlarged, and heterogeneous in attenuation. Gallbladder and bile ducts: The gallbladder is decompressed. No calcified stones. No significant intra- or extrahepatic biliary ductal dilation. Pancreas: Enhances homogeneously. No ductal dilation. No discrete mass. Spleen: No acute findings. Adrenals: No acute findings. Kidneys and ureters: No acute findings. No hydronephrosis or renal calculi. No discrete solid mass. PELVIS: Bladder: No acute findings. Reproductive: No acute findings. Appendix: The air filled appendix is of normal caliber (series 2, image 92). ABDOMEN and PELVIS: Stomach and bowel: Bilateral bowel containing nonobstructing inguinal hernias. Peritoneum: No significant fluid collection. No free air. Lymph nodes: No pathologically enlarged lymph nodes. Vasculature: Calcified atherosclerotic disease. Bones: No acute fracture. Persistent compression of the superior endplate of L1, unchanged from prior. IMPRESSION: 19 mm right lower lobe pulmonary nodule - for which tissue sampling is suggested. Additional nonacute findings, as detailed above. Dictated By: Tyesha Partida MD Dictated Date/Time: 08/22/16142 Signed By: Tyesha Partida MD Date Signed: 142 Transcribed By: LELA Transcribe Date/Time : 08/22/16142 VIRGILIO/MELISSA 08/22/16 02:10 CHEST X-RAYS: B/L LOWER LOBE INFILTRATES. RIGHT LOWER LOBE LUNG NODULE (Krishnan, Nahim P) Radiology Orders: 08/21/16 23:44 CHEST PORTABLE [RAD] Stat 08/21/16 23:46 ABD & PELVIS IV CONTRAST ONLY [CT] Stat - Medication Orders Current Medication Orders: Discontinued Medications Albuterol/Ipratropium (Duoneb 3 Mg/0.5 Mg (3 Ml) Ud) 3 ml IH [id number] [facility] Last Admin: 08/24/16 08:04 Dose: 3 ml Albuterol/Ipratropium (Duoneb 3 Mg/0.5 Mg (3 Ml) Ud) 3 ml IH Q2H PRN PRN Reason: Shortness of Breath Arformoterol Tartrate (Brovana) 15 mcg IH [id number] [facility] Last Admin: 08/24/16 08:04 Dose: 15 mcg Azithromycin (Zithromax) 250 mg PO DAILY [facility] PRN Reason: Protocol Stop: 08/26/16 23:59 Last Admin: 08/24/16 09:56 Dose: 250 mg Budesonide (Pulmicort Respules) 0.5 mg IH [id number] [facility] Last Admin: 08/24/16 08:04 Dose: 0.5 mg Calcium/Vitamin D (Oscal-D 250 Mg-125 Units Tab) 1 tab PO DAILY [facility] Last Admin: 08/24/16 09:56 Dose: 1 tab Heparin Sodium (Porcine) (Heparin) 5,000 units SC Q12H [facility] PRN Reason: Protocol Last Admin: 08/22/16 17:00 Dose: 5,000 units Heparin Sodium (Porcine) (Heparin) 5,000 units SC Q12H [facility] PRN Reason: Protocol Last Admin: 08/24/16 05:34 Dose: 5,000 units Famotidine (Pepcid 20mg/50ml Premix) 20 mg in 50 mls @ 100 mls/hr IVPB STAT STA Stop: 08/22/16 00:14 Last Admin: 08/22/16 00:20 Dose: 100 mls/hr Sodium Chloride (Sodium Chloride 0.9%) 1,000 mls @ 999 mls/hr IV .Q1H1M STA Stop: 08/22/16 00:45 Last Admin: 08/22/16 00:47 Dose: 999 mls/hr Ceftriaxone Sodium (Rocephin 1 Gram Ivpb) 1 gm in 100 mls @ 200 mls/hr IVPB STAT STA PRN Reason: Protocol Stop: 08/22/16 02:32 Last Admin: 08/22/16 02:23 Dose: 200 mls/hr Azithromycin (Zithromax 500mg In Ns) 500 mg in 250 mls @ 167 mls/hr IVPB STAT STA PRN Reason: Protocol Stop: 08/22/16 03:32 Last Admin: 08/22/16 03:11 Dose: 167 mls/hr Sodium Chloride (Sodium Chloride 0.9%) 1,000 mls @ 100 mls/hr IV .Q10H [facility] Last Admin: 08/22/16 02:42 Dose: 100 mls/hr Sodium Chloride (Sodium Chloride 0.9%) 1,000 mls @ 100 mls/hr IV .Q10H [facility] Last Admin: 08/24/16 01:00 Dose: 100 mls/hr Ceftriaxone Sodium (Rocephin 1 Gram Ivpb) 1 gm in 100 mls @ 100 mls/hr IVPB DAILY [facility] PRN Reason: Protocol Last Admin: 08/24/16 09:56 Dose: 100 mls/hr Iohexol (Omnipaque 350 100 Ml) Confirm Administered Dose 350 mg .ROUTE .STK-MED ONE Stop: 08/22/16 00:49 Morphine Sulfate (Morphine) 4 mg IVP Q4H PRN PRN Reason: Pain, severe (8-10) Ondansetron HCl (Zofran Tab) 4 mg PO STAT STA Stop: 08/22/16 04:11 Pantoprazole Sodium (Protonix Inj) 40 mg IVP DAILY [facility] Last Admin: 08/22/16 10:33 Dose: 40 mg Pantoprazole Sodium (Protonix Ec Tab) 40 mg PO 0600 [facility] Last Admin: 08/24/16 05:34 Dose: 40 mg Polyethylene Glycol (Miralax) 17 gm PO DAILY [facility] Last Admin: 08/24/16 09:56 Dose: 17 gm Tiotropium [place] (Spiriva) 18 mcg IH DAILY [facility] Last Admin: 08/24/16 09:56 Dose: 18 mcg - PA / YARN CARRIER / Resident Statement / has reviewed & agrees with the documentation as recorded. <Jameson Aguilar - Last Filed: 08/22/16 00:52> Disposition/Present on Arrival <Jameson Aguilar - Last Filed: 08/22/16 00:52> - Present on Arrival Any Indicators Present on Arrival: No History of DVT/PE: No History of Uncontrolled Diabetes: No Urinary Catheter: No History of Decub. Ulcer: No History Surgical Site Infection Following: None - Disposition Have Diagnosis and Disposition been Completed?: Yes Disposition Time: 02:06 Patient Plan: Admission <Juan Antonio Krishnan - Last Filed: 08/29/16 21:49> - Disposition Diagnosis: Bilateral pneumonia, Pulmonary nodule less than 6 cm determined by computed tomography of lung, Weight loss, unintentional, Abdominal pain Disposition: HOSPITALIZED Condition: STABLE
[2016-08-22 00:23] LABS: URINE BILIRUBIN NEGATIVE (NEGATIVE); URINE BLOOD NEGATIVE (NEGATIVE); URINE GLUCOSE (UA) NEGATIVE (NEGATIVE); URINE LEUKOCYTE ESTERASE NEGATIVE Leu/uL (NEGATIVE); URINE NITRATE NEGATIVE (NEGATIVE); URINE PROTEIN NEGATIVE mg/dL (<30 mg/dL); URINE UROBILINOGEN 0.2 E.U./dL (<1 E.U./dL)
[2016-08-22 00:24] LABS: URINE APPEARANCE CLEAR (CLEAR); URINE COLOR YELLOW (YELLOW)
[2016-08-22 00:25] LABS: ALB/GLOB RATIO 1.2 (1.1-1.8); ALBUMIN 4.1 g/dL (3.0-4.8); ALT/SGPT 24 U/L (7-56); AMYLASE 79 U/L (35-125); AST/SGOT 29 U/L (15-59); BLOOD UREA NITROGEN 13 mg/dL (7-21); CALCIUM 9.4 mg/dL (8.4-10.5); GFR AFRICAN-AMERICAN > 60; GFR NON-AFRICAN AMERICAN > 60; LIPASE 65 U/L (23-300)
[2016-08-22 00:35] LABS: BASO # 0.04 K/mm3 (0.0-2.0); BASO % 0.3 % (0.0-3.0); EOS # 0.1 (0.0-0.7); EOS % 0.6 % (1.5-5.0); GRAN # 9.99 (1.4-6.5); GRAN % 78.3 % (50.0-68.0); HEMOGLOBIN 14.2 gm/dL (14.0-18.0); LYMPH # 1.9 (1.2-3.4); LYMPH % 14.5 % (22.0-35.0); MEAN CELL VOLUME 94.5 fL (80.0-105.0); MEAN CORPUSCULAR HEMOGLOBIN 32.4 pg (25.0-35.0); MEAN CORPUSCULAR HGB CONC 34.3 g/dl (31.0-37.0); MEAN PLATELET VOLUME 8.7 fl (7.0-11.0); MONO # 0.8 (0.1-0.6); MONO % 6.3 % (1.0-6.0); PLATELET COUNT 316 10^3/uL (120.0-450.0); RBC 4.38 10^6/uL (3.5-6.1); RED CELL DISTRIBUTION WIDTH 12.9 % (11.5-14.5); WHITE BLOOD COUNT 12.8 10^3/ul (4.5-11.0)
[2016-08-22] MEDS ORDERED: Iohexol 350 MG/100 ML VIAL ONE (00:48)
--- NOTE | 2016-08-22 01:44 | CT ---
EXAM: CT Abdomen and Pelvis With Intravenous Contrast CLINICAL HISTORY: 56 years old, male; Pain; Abdominal pain; Flank; Left; Additional info: Left side abdominal pain TECHNIQUE: Axial computed tomography images of the abdomen and pelvis with intravenous contrast. This CT exam was performed using one or more of the following dose reduction techniques: automated exposure control, adjustment of the mA and/or kV according to patient size, and/or use of iterative reconstruction technique. Coronal and sagittal reformatted images were created and reviewed. CONTRAST: 96 mL of OMNI 350 administered intravenously. COMPARISON: CT - ABD PELVIS IV CONTRAST ONLY 05/02/2016 7:00:32 PM FINDINGS: Lower thorax: Interval enlargement of the right lower lobe pulmonary nodule seen on prior examination, now measuring 19 mm in anterior posterior dimension (series 4, image 19). ABDOMEN: Liver: The liver is enlarged, and heterogeneous in attenuation. Gallbladder and bile ducts: The gallbladder is decompressed. No calcified stones. No significant intra- or extrahepatic biliary ductal dilation. Pancreas: Enhances homogeneously. No ductal dilation. No discrete mass. Spleen: No acute findings. Adrenals: No acute findings. Kidneys and ureters: No acute findings. No hydronephrosis or renal calculi. No discrete solid mass. PELVIS: Bladder: No acute findings. Reproductive: No acute findings. Appendix: The air filled appendix is of normal caliber (series 2, image 92). ABDOMEN and PELVIS: Stomach and bowel: Bilateral bowel containing nonobstructing inguinal hernias. Peritoneum: No significant fluid collection. No free air. Lymph nodes: No pathologically enlarged lymph nodes. Vasculature: Calcified atherosclerotic disease. Bones: No acute fracture. Persistent compression of the superior endplate of L1, unchanged from prior. IMPRESSION: 19 mm right lower lobe pulmonary nodule - for which tissue sampling is suggested. Additional nonacute findings, as detailed above.
[2016-08-22] MEDS ORDERED: Azithromycin 500MG/NS 250ml 500 MG/250 ML BAG IVPB STA (02:03)
[2016-08-22] MEDS ORDERED: cefTRIAXone 1 gm 1 GM/100 ML BAG IVPB STA (02:03)
[2016-08-22] MEDS ORDERED: Sodium Chloride 0.9% 1,000 ML IV SCH (02:15)
[2016-08-22] MEDS ORDERED: Morphine 4 mg/ml ISec IVP PRN (03:14)
--- NOTE | 2016-08-22 03:21 | CP.PCM.HP ---
<JOSSIE ANDERSON - Last Filed: 08/22/16 05:14> History of Present Illness - History of Present Illness History of Present Illness: 55 year old male no significant PMH presents to [facility] on 08/21/2016 with complaints of general malaise. Patient states that two weeks ago is when the cough and chills started. About ten days later he noticed he started having abdominal pain in the epigastric region. Patient states that this pain lasts throughout the day and is sharp as if a knife is stabbing. The pain is 10/10 and non radiating. Patient states that the pain is exacerbated with certain movements, especially coughing. Patient denies n/v, chest pain, shortness of breath, headache. Patient admits to one recent episode of diarrhea, as well as an episode of lightheadedness. Patient said today he felt as if he were going to fall while he was walking and this prompted him to get checked our further. PMH: as above PSH: none Allergies: NKDA SH: 40 year smoking history, denies alcohol consumption, denies illicit drug use FH: reviewed and noncontributory Present on Admission - Present on Admission Any Indicators Present on Admission: No Review of Systems - Constitutional Constitutional: Chills. absent: Fatigue, Fever, Frequent Falls - Cardiovascular Cardiovascular: absent: Acrocyanosis, Chest Pain, Diaphoresis, Dyspnea - Respiratory Respiratory: Cough, Wheezing, Chest Congestion, Change in Mucous Color, Pain with Coughing. absent: Dyspnea, Hemoptysis - Gastrointestinal Gastrointestinal: Abdominal Pain, Diarrhea. absent: Bloating, Change in Bowel Habits - Neurological Neurological: absent: Abnormal Hearing, Abnormal Movements, Abnormal Speech Past Patient History - Infectious Disease Hx of Infectious Diseases: None - Past Social History Smoking Status: Current Some Days Smoker - CARDIAC Hx Cardiac Disorders: No - PULMONARY Hx Respiratory Disorders: No - NEUROLOGICAL Hx Neurological Disorder: No - HEENT Hx HEENT Problems: No - RENAL Hx Chronic Kidney Disease: No - ENDOCRINE/METABOLIC Hx Endocrine Disorders: No - HEMATOLOGICAL/ONCOLOGICAL Hx Blood Disorders: No - INTEGUMENTARY Hx Dermatological Problems: No - MUSCULOSKELETAL/RHEUMATOLOGICAL Hx Falls: No - GASTROINTESTINAL Hx Gastrointestinal Disorders: No - GENITOURINARY/GYNECOLOGICAL Hx Genitourinary Disorders: No - PSYCHIATRIC Hx Psychophysiologic Disorder: No Hx Substance Use: No - SURGICAL HISTORY Hx Surgeries: No - ANESTHESIA Hx Anesthesia: No Hx Anesthesia Reactions: No Hx Malignant Hyperthermia: No Meds Allergies/Adverse Reactions: Allergies Allergy/AdvReac Type Severity Reaction Status Date / Time No Known Allergies Allergy Verified 01/23/15 14:12 Physical Exam - Head Exam Head Exam: ATRAUMATIC, NORMAL INSPECTION, NORMOCEPHALIC - Eye Exam Eye Exam: Normal appearance Pupil Exam: NORMAL ACCOMODATION - ENT Exam ENT Exam: Mucous Membranes Moist, Normal Exam - Neck Exam Neck exam: Positive for: Normal Inspection. Negative for: Lymphadenopathy - Respiratory Exam Respiratory Exam: Rhonchi, Wheezes. absent: Accessory Muscle Use, Clear to Auscultation Bilateral - Cardiovascular Exam Cardiovascular Exam: REGULAR RHYTHM. absent: Clicks, Diastolic murmur - GI/Abdominal Exam GI & Abdominal Exam: absent: Diminished Bowel Sounds, Distended, Guarding Results - Vital Signs Recent Vital Signs: Last Vital Signs Temp 98.4 F 08/22/16 01:17 Pulse 63 08/22/16 01:17 Resp 19 08/22/16 02:43 BP 101/56 L 08/22/16 01:17 Pulse Ox 99 08/22/16 02:43 - Labs Result Diagrams: 08/22/16 03:35 08/22/16 00:00 Assessment & Plan - Assessment and Plan (Free Text) Assessment: 56 year old male with no significant pmh presents to the ED for abdominal pain most likely secondary to coughing. Plan: 1. Pulmonary nodule -CT chest without contrast; results pending -Pulmonology consult 2. Abdominal Pain -Past history of melena; GI consulted -Abdominal ultrasound for cholelithiasis; might be more useful for detecting smaller stones -Regular diet -Morphine 4 mg q 4 PRN for pain -Zofran PRN for nausea DVT/GI prophylaxis with Heparin 5000 IU q 12 and Protonix 40 mg qD <Julissa DE LA TORRE,Ted - Last Filed: 08/27/16 05:40> Results - Vital Signs Recent Vital Signs: Last Vital Signs Temp 98.7 F 08/24/16 09:03 Pulse 65 08/24/16 09:03 Resp 20 08/24/16 09:03 BP 111/75 08/24/16 09:03 Pulse Ox 95 08/24/16 09:03 - Labs Result Diagrams: 08/24/16 11:01 08/24/16 07:00 Attending/Attestation - Attestation I have personally seen and examined this patient.: Yes I have fully participated in the care of the patient.: Yes I have reviewed all pertinent clinical information: Yes Notes (Text): 08/27/16 05:40 -I agree with the above H&P completed by the resident physician.
[2016-08-22 03:49] LABS: BASO # 0.04 K/mm3 (0.0-2.0); BASO % 0.3 % (0.0-3.0); EOS # 0.1 (0.0-0.7); EOS % 0.7 % (1.5-5.0); GRAN # 8.47 (1.4-6.5); GRAN % 72.9 % (50.0-68.0); HEMOGLOBIN 12.7 gm/dL (14.0-18.0); LYMPH # 2.5 (1.2-3.4); LYMPH % 21.8 % (22.0-35.0); MEAN CELL VOLUME 94.5 fL (80.0-105.0); MEAN CORPUSCULAR HEMOGLOBIN 31.8 pg (25.0-35.0); MEAN CORPUSCULAR HGB CONC 33.7 g/dl (31.0-37.0); MEAN PLATELET VOLUME 8.4 fl (7.0-11.0); MONO # 0.5 (0.1-0.6); MONO % 4.3 % (1.0-6.0); PLATELET COUNT 276 10^3/uL (120.0-450.0); RBC 3.99 10^6/uL (3.5-6.1); RED CELL DISTRIBUTION WIDTH 12.9 % (11.5-14.5); WHITE BLOOD COUNT 11.6 10^3/ul (4.5-11.0)
[2016-08-22 04:38] VITALS: BMI 18.0
--- NOTE | 2016-08-22 07:10 | RAD ---
HISTORY: cough COMPARISON: 05/02/2016 FINDINGS: LUNGS: Bilateral hyperaeration similar-. Interval bibasilar peribronchial thickening - minimal compliance right lung base in here in part nipple shadow possible -asymmetry compared the left. At minimum peribronchial thickening/ bronchitic changes inferred PLEURA: No significant pleural effusion identified, no pneumothorax apparent. CARDIOVASCULAR: Normal. OSSEOUS STRUCTURES: No significant abnormalities. VISUALIZED UPPER ABDOMEN: Normal. OTHER FINDINGS: None. IMPRESSION: Infrahilar/bibasilar peribronchial thickening/inflammatory change -consistent with a clinical bronchitis. Given slight asymmetry right lung base -early patchy infiltrate not excluded. Follow-up imaging to ensure resolution recommended Background COPD/emphysema
--- NOTE | 2016-08-22 09:33 | US ---
HISTORY: abdominal pain COMPARISON: None. TECHNIQUE: Sonographic evaluation of the abdomen. FINDINGS: LIVER: Measures 17.9 cm. Normal echogenicity of the liver parenchyma. No mass. No intrahepatic bile duct dilatation. GALLBLADDER: Unremarkable. No gallstones. COMMON BILE DUCT: Measures 5 mm. No stones. No dilatation. PANCREAS: Unremarkable as visualized. No mass. No ductal dilatation. RIGHT KIDNEY: Measures 11.8 x 4.4 x 4.4cm. Normal echogenicity. No calculus, mass, or hydronephrosis. LEFT KIDNEY: Measures 11.0 x 5.0 x 5.2cm. Normal echogenicity. No calculus, mass, or hydronephrosis. SPLEEN: Normal in size and contour. No mass. AORTA: No aneurysmal dilatation. IVC: Unremarkable. OTHER FINDINGS: None. IMPRESSION: Borderline hepatomegaly. Otherwise negative
--- NOTE | 2016-08-22 09:52 | CP.PCM.CON ---
<Austen Johnson - Last Filed: 08/22/16 11:58> History of Present Illness - History of Present Illness History of Present Illness: PGY5 GI Fellow Consult Note Patient is a 56yo male with no signficiant PMHx who presents to the hospital with complaint of persistent cough and chest congestion as well as abdominal pain. States he developed sudden onset cough 2 weeks [employer]. He has only used Ibuprofen BID at home to help with his symptoms but only had modest relief. As he continued to cough, he developed B/L rib/flank pain. 2-3 days prior to arrival he also began to develop non-radiating, epigastric, stabbing pain. Denies ever having symptoms like this before. Does not an unintentional 15lb weight loss in the past 3 months and a history of dark stool in April of this year which has since resolved. No recent melena, hematochezia, nausea, vomiting , fever, chills. Of note, a CT performed in the ED does reveal a 2cm nodule in the RLL. PMHx: Discussed with patient and denies PSHx: Discussed with patient and denies FHx: Discussed with patient and denies any significant family history Social: +tobacco use for 40+ years; no EtOH or illicit drug use Endo: No prior endoscopic evaluations Review of Systems - Constitutional Constitutional: Weight Loss. absent: Anorexia, Chills, Fever - EENT Eyes: absent: Change in Vision Nose/Mouth/Throat: absent: Sore Throat - Cardiovascular Cardiovascular: Dyspnea. absent: Chest Pain, Edema - Respiratory Respiratory: Cough, Dyspnea, Dyspnea on Exertion - Gastrointestinal Gastrointestinal: Abdominal Pain, Constipation, Diarrhea, Heartburn, Loose Stools. absent: Cramping, Dyspepsia, Dysphagia, Hematochezia, Melena, Nausea, Vomiting - Genitourinary Genitourinary: absent: Dysuria, Urinary Frequency, Urinary Urgency - Musculoskeletal Musculoskeletal: absent: Back Pain, Neck Pain - Integumentary Integumentary: absent: New Lesions, Rash - Neurological Neurological: absent: Dizziness, Numbness, Focal Weakness - Psychiatric Psychiatric: absent: Anxiety, Depression - Endocrine Endocrine: absent: Polydipsia, Polyphagia, Polyuria - Hematologic/Lymphatic Hematologic: absent: Easy Bleeding, Easy Bruising, Lymphadenopathy Past Patient History - Infectious Disease Hx of Infectious Diseases: None - Past Social History Smoking Status: Current Some Days Smoker - CARDIAC Hx Cardiac Disorders: No - PULMONARY Hx Respiratory Disorders: No - NEUROLOGICAL Hx Neurological Disorder: No - HEENT Hx HEENT Problems: No - RENAL Hx Chronic Kidney Disease: No - ENDOCRINE/METABOLIC Hx Endocrine Disorders: No - HEMATOLOGICAL/ONCOLOGICAL Hx Blood Disorders: No - INTEGUMENTARY Hx Dermatological Problems: No - MUSCULOSKELETAL/RHEUMATOLOGICAL Hx Falls: No - GASTROINTESTINAL Hx Gastrointestinal Disorders: No - GENITOURINARY/GYNECOLOGICAL Hx Genitourinary Disorders: No - PSYCHIATRIC Hx Psychophysiologic Disorder: No Hx Substance Use: No - SURGICAL HISTORY Hx Surgeries: No - ANESTHESIA Hx Anesthesia: No Hx Anesthesia Reactions: No Hx Malignant Hyperthermia: No Meds Allergies/Adverse Reactions: Allergies Allergy/AdvReac Type Severity Reaction Status Date / Time No Known Allergies Allergy Verified 01/23/15 14:12 - Medications Medications: Current Medications Heparin Sodium (Porcine) (Heparin) 5,000 units SC Q12H [facility] PRN Reason: Protocol Sodium Chloride (Sodium Chloride 0.9%) 1,000 mls @ 100 mls/hr IV .Q10H [facility] Morphine Sulfate (Morphine) 4 mg IVP Q4H PRN PRN Reason: Pain, severe (8-10) Pantoprazole Sodium (Protonix Inj) 40 mg IVP DAILY [facility] Physical Exam - Constitutional Appears: Non-toxic, No Acute Distress - Eye Exam Eye Exam: EOMI, PERRL - ENT Exam ENT Exam: Mucous Membranes Moist - Respiratory Exam Respiratory Exam: Rhonchi, Wheezes. absent: Clear to Auscultation Bilateral, Rales - Cardiovascular Exam Cardiovascular Exam: RRR, +S1, +S2 - GI/Abdominal Exam GI & Abdominal Exam: Normal Bowel Sounds, Soft, Tenderness (minimal epigastric) . absent: Distended, Firm, Guarding, Rigid - Extremities Exam Extremities exam: Positive for: normal inspection. Negative for: pedal edema - Neurological Exam Neurological exam: Alert, Oriented x3 - Psychiatric Exam Psychiatric exam: Normal Affect, Normal Mood - Skin Skin Exam: Dry, Warm Results - Vital Signs Recent Vital Signs: Last Vital Signs Temp 98.7 F 08/22/16 08:30 Pulse 61 08/22/16 08:30 Resp 20 08/22/16 08:30 BP 101/60 08/22/16 08:30 Pulse Ox 98 08/22/16 08:30 - Labs Result Diagrams: 08/22/16 03:35 07/12/17 00:00 Labs: Laboratory Results - last 24 hr 08/22/16 08/22/16 03:35 03:35 WBC 11.6 H RBC 3.99 Hgb 12.7 L Hct 37.7 L MCV 94.5 MCH 31.8 MCHC 33.7 RDW 12.9 Plt Count 276 MPV 8.4 Gran % 72.9 H Lymph % (Auto) 21.8 L [place] % (Auto) 4.3 Eos % (Auto) 0.7 L Baso % (Auto) 0.3 Gran # 8.47 H Lymph # 2.5 [place] # 0.5 Eos # 0.1 Baso # 0.04 APTT 33.4 H Assessment & Plan - Assessment and Plan (Free Text) Assessment: Patient is a 56yo male with no significant PMHx who presents to the hospital with complaint of persistent cough and chest congestion as well as abdominal pain. -Abnormal CT of the chest - RLL lung nodule -Cough -Unintentional weight loss -Epigastric abdominal pain Plan: -Recommend ongoing work up for pulmonary issues/newly diagnosed lung nodule -Weight loss/smoking history/nodule concerning for malignancy -Recommend Protonix 40mg PO QAMAC; decrease NSAID use -Outpatient EGD/Colonoscopy; will need follow up with [facility] -Diet as tolerated - Date & Time Date: 08/22/16 Time: 08:30 <Darion Hernandez MD - Last Filed: 08/22/16 12:21> Meds - Medications Medications: Current Medications Heparin Sodium (Porcine) (Heparin) 5,000 units SC Q12H [facility] PRN Reason: Protocol Sodium Chloride (Sodium Chloride 0.9%) 1,000 mls @ 100 mls/hr IV .Q10H [facility] Morphine Sulfate (Morphine) 4 mg IVP Q4H PRN PRN Reason: Pain, severe (8-10) Pantoprazole Sodium (Protonix Ec Tab) 40 mg PO 0600 [facility] Results - Vital Signs Recent Vital Signs: Last Vital Signs Temp 98.7 F 08/22/16 08:30 Pulse 61 08/22/16 08:30 Resp 20 08/22/16 08:30 BP 101/60 08/22/16 08:30 Pulse Ox 98 08/22/16 08:30 - Labs Result Diagrams: 08/22/16 03:35 08/22/16 00:00 Labs: Laboratory Results - last 24 hr 08/22/16 08/22/16 03:35 03:35 WBC 11.6 H RBC 3.99 Hgb 12.7 L Hct 37.7 L MCV 94.5 MCH 31.8 MCHC 33.7 RDW 12.9 Plt Count 276 MPV 8.4 Gran % 72.9 H Lymph % (Auto) 21.8 L [place] % (Auto) 4.3 Eos % (Auto) 0.7 L Baso % (Auto) 0.3 Gran # 8.47 H Lymph # 2.5 [place] # 0.5 Eos # 0.1 Baso # 0.04 APTT 33.4 H Attending/Attestation - Attestation I have personally seen and examined this patient.: Yes I have fully participated in the care of the patient.: Yes I have reviewed all pertinent clinical information: Yes Notes (Text): 08/22/16 12:18 Patient seen with GI fellow on rounds. This is a 56 yr old male with no significant PMHx who presents to the hospital with complaint of persistent cough and chest congestion as well as abdominal pain. Found to have concerning lung nodule. Also with history of melena and weight loss two months ago. Unable to make appointments at [facility] clinic. Currently he has stable Hb and is pending nodule biopsy. Tolerating regular diet. Will give appointment for [facility] clinic next week and do outpatient EGD/ colonoscopy. Continue PPI daily. Discussed with the hospitalist
--- NOTE | 2016-08-22 12:08 | CT ---
PROCEDURE: CT Chest without contrast HISTORY: Pulmonary nodule COMPARISON: None. TECHNIQUE: Contiguous axial images were obtained through the chest without intravenous contrast enhancement. Sagittal and coronal reconstructions were performed. Radiation dose (DLP): 245 mGy-cm. This CT exam was performed using one or more of the following dose reduction techniques: Automated exposure control, adjustment of the mA and/or kV according to patient size, and/or use of iterative reconstruction technique. FINDINGS: LUNGS: There is patchy dense consolidation in the right lower lobe consistent with pneumonia. There is also a minimal infiltrate at the left lung base. Findings are consistent with pneumonia. Findings best seen on axial image 98 series 4 MEDIASTINUM: Unremarkable thoracic aorta. No aneurysm. The heart is normal in size. Coronary artery calcifications are seen. Main pulmonary artery unremarkable. No vascular congestion. No lymphadenopathy. PLEURA: No pleural fluid. No pneumothorax. BONES: No fracture. No destructive lesion. UPPER ABDOMEN: Grossly unremarkable. OTHER FINDINGS: None. IMPRESSION: Patchy dense consolidation in the right lower lobe and minimal patchy infiltrate at the left lung base. Findings consistent with pneumonia
[2016-08-22] MEDS ORDERED: Albuterol-Ipratrop 3 mg / 0.5 (3 ml) UD IH PRN (14:45)
[2016-08-22] MEDS: Sodium Chloride 0.9% 1,000 ML IV SCH (17:55)
--- NOTE | 2016-08-22 18:03 | CP.PCM.CON ---
History of Present Illness - History of Present Illness History of Present Illness: 56 y/o M w/ Long standing smoking history presented with SOB, COUGH and abd pain. Productive yellow sputum at home x 10 days. SOB and lethargy noted as well. 15Lb weight loss in 3 months. 60pk year smoking hx. No hemoptysis noted. Review of Systems - Constitutional Constitutional: Fatigue - EENT Eyes: absent: As Per HPI, Blind Spots, Blurred Vision, Change in Vision, Decreased Night Vision, Diplopia, Discharge, Dry Eye, Exophthalmos, Floaters, Irritation, Itchy Eyes, Loss of Peripheral Vision, Pain, Photophobia, Requires Corrective Lenses, Sees Flashes, Spots in Vision, Tunnel Vision, Other Visual Disturbances, Loss of Vision, Other Ears: absent: As Per HPI, Decreased Hearing, Ear Discharge, Ear Pain, Tinnitus, Abnormal Hearing, Disequilibrium, Dizziness, Other Nose/Mouth/Throat: absent: As Per HPI, Epistaxis, Nasal Congestion, Nasal Discharge, Nasal Obstruction, Nasal Trauma, Nose Pain, Post Nasal Drip, Sinus Pain, Sinus Pressure, Bleeding Gums, Change in Voice, Dental Pain, Dry Mouth, Dysphagia, Halitosis, Hoarsness, Lip Swelling, Mouth Lesions, Mouth Pain, Odynophagia, Sore Throat, Throat Swelling, Tongue Swelling, Facial Pain, Neck Pain, Neck Mass, Other - Cardiovascular Cardiovascular: absent: As Per HPI, Acrocyanosis, Chest Pain, Chest Pain at Rest , Chest Pain with Activity, Claudication, Diaphoresis, Dyspnea, Dyspnea on Exertion, Edema, Irregular Heart Rhythm, Pain Radiating to Arm/Neck/Jaw, Leg Edema, Leg Ulcers, Lightheadedness, Orthopnea, Palpitations, Paroxysmal Nocturnal Dyspnea, Pedal Edema, Radiating Pain, Rapid Heart Rate, Slow Heart Rate, Syncope, Other - Respiratory Respiratory: Cough, Dyspnea on Exertion - Gastrointestinal Gastrointestinal: absent: As Per HPI, Abdominal Pain, Belching, Bloating, Change in Bowel Habits, Change in Stool Character, Coffee Ground Emesis, Constipation, Cramping, Diarrhea, Dyspepsia, Dysphagia, Early Satiety, Excessive Flatus, Fecal Incontinence, Heartburn, Hematemesis, Hematochezia, Loose Stools, Melena, Nausea, Odynophagia, Temesmus, Vomiting, Other - Genitourinary Genitourinary: absent: As Per HPI, Change in Urinary Stream, Difficulty Urinating, Dysuria, Flank Pain, Hematuria, Pyuria, Nocturia, Urinary Incontinence, Urinary Frequency, Urinary Hesitance, Urinary Urgency, Voiding Freq/Small Amts, Freq UTI, Hx Renal/Bladder Calculi, Hx /Renal Surgery, Bladder Distension, Other - Reproductive: Male Reproductive:Male: As Per HPI, Prepubesant, Dyspareunia, Genital Lesions, Genital Pruritis, Pelvic Pain, Sexual Dysfunction, Penile Discharge, Genital Odor, Impotence, On ED Medications, Penile Implant, Other - Musculoskeletal Musculoskeletal: absent: As Per HPI, Abnormal Gait, Arthralgias, Atrophy, Back Pain, Deformity, Joint Swelling, Limited Range of Motion, Loss of Height, Muscle Cramps, Muscle Weakness, Myalgias, Neck Pain, Numbness, Radiating Pain into Limb, Stiffness, Tingling, Other - Integumentary Integumentary: absent: As Per HPI, Acne, Alopecia, Bleeding Lesions, Change in Hair, Change in Nails, Change in Pigmentation, Changing Lesions, Dry Skin, Erythema, Furuncle, Hirsutism, Lesions, New Lesions, Non-Healing Lesions, Photosensitivity, Pruritus, Rash, Skin Pain, Skin Ulcer, Sores, Striae, Swelling , Unusual Bruising, Wounds, Jaundice, Other - Neurological Neurological: absent: As Per HPI, Abnormal Gait, Abnormal Hearing, Abnormal Movements, Abnormal Speech, Behavioral Changes, Burning Sensations, Confusion, Convulsions, Disequilibrium, Dizziness, Numbness, Focal Weakness, Frequent Falls , Headaches, Lack of Coordination, Loss of Vision, Memory Loss, Paresthesias, Radicular Pain, Restless Legs, Sensory Deficit, Syncope, Tingling, Tremor, Vertigo, Weakness, Other Visual Disturbances, Other Past Patient History - Infectious Disease Hx of Infectious Diseases: None - Past Social History Smoking Status: Current Some Days Smoker - CARDIAC Hx Cardiac Disorders: No - PULMONARY Hx Respiratory Disorders: No - NEUROLOGICAL Hx Neurological Disorder: No - HEENT Hx HEENT Problems: No - RENAL Hx Chronic Kidney Disease: No - ENDOCRINE/METABOLIC Hx Endocrine Disorders: No - HEMATOLOGICAL/ONCOLOGICAL Hx Blood Disorders: No - INTEGUMENTARY Hx Dermatological Problems: No - MUSCULOSKELETAL/RHEUMATOLOGICAL Hx Falls: No - GASTROINTESTINAL Hx Gastrointestinal Disorders: No - GENITOURINARY/GYNECOLOGICAL Hx Genitourinary Disorders: No - PSYCHIATRIC Hx Psychophysiologic Disorder: No Hx Substance Use: No - SURGICAL HISTORY Hx Surgeries: No - ANESTHESIA Hx Anesthesia: No Hx Anesthesia Reactions: No Hx Malignant Hyperthermia: No Meds Allergies/Adverse Reactions: Allergies Allergy/AdvReac Type Severity Reaction Status Date / Time No Known Allergies Allergy Verified 01/23/15 14:12 - Medications Medications: Current Medications Albuterol/Ipratropium (Duoneb 3 Mg/0.5 Mg (3 Ml) Ud) 3 ml IH [id number] [facility] Albuterol/Ipratropium (Duoneb 3 Mg/0.5 Mg (3 Ml) Ud) 3 ml IH Q2H PRN PRN Reason: Shortness of Breath Azithromycin (Zithromax) 250 mg PO DAILY [facility] PRN Reason: Protocol Stop: 08/26/16 23:59 Heparin Sodium (Porcine) (Heparin) 5,000 units SC Q12H [facility] PRN Reason: Protocol Sodium Chloride (Sodium Chloride 0.9%) 1,000 mls @ 100 mls/hr IV .Q10H [facility] Ceftriaxone Sodium (Rocephin 1 Gram Ivpb) 1 gm in 100 mls @ 100 mls/hr IVPB DAILY [facility] PRN Reason: Protocol Morphine Sulfate (Morphine) 4 mg IVP Q4H PRN PRN Reason: Pain, severe (8-10) Pantoprazole Sodium (Protonix Ec Tab) 40 mg PO 0600 [facility] Physical Exam - Constitutional Appears: Cachectic - Head Exam Head Exam: ATRAUMATIC - Eye Exam Eye Exam: EOMI, Normal appearance - ENT Exam ENT Exam: Mucous Membranes Moist - Neck Exam Neck exam: Positive for: Full Rom - Respiratory Exam Respiratory Exam: Clear to Auscultation Bilateral, NORMAL BREATHING PATTERN - Cardiovascular Exam Cardiovascular Exam: REGULAR RHYTHM - GI/Abdominal Exam GI & Abdominal Exam: Normal Bowel Sounds - Back Exam Back exam: NORMAL INSPECTION - Neurological Exam Neurological exam: Oriented x3 Results - Vital Signs Recent Vital Signs: Last Vital Signs Temp 99.3 F 08/22/16 16:00 Pulse 58 L 08/22/16 16:00 Resp 20 08/22/16 16:00 BP 113/69 08/22/16 16:00 Pulse Ox 98 08/22/16 16:00 - Labs Result Diagrams: 08/22/16 03:35 08/22/16 00:00 Labs: Laboratory Results - last 24 hr 08/22/16 08/22/16 03:35 03:35 WBC 11.6 H RBC 3.99 Hgb 12.7 L Hct 37.7 L MCV 94.5 MCH 31.8 MCHC 33.7 RDW 12.9 Plt Count 276 MPV 8.4 Gran % 72.9 H Lymph % (Auto) 21.8 L [place] % (Auto) 4.3 Eos % (Auto) 0.7 L Baso % (Auto) 0.3 Gran # 8.47 H Lymph # 2.5 [place] # 0.5 Eos # 0.1 Baso # 0.04 APTT 33.4 H Assessment & Plan - Assessment and Plan (Free Text) Assessment: 56 y/o M w/ 60pk year smoking hx presents with SOB, COugh and dyspnea. Ct chest images reviewed by me shows dense RLL infiltrate. GGo could be obscuring any underlying nodule or mass. With elevated WBC, chills, productive cough , would treat for Pneumonia and complete the course. With 15lb weight loss, cachexia and 60pk year smoking hx would be high risk for Malignancy. Would repeat Chest Ct in 2 weeks to determine if the RLL does have an area to biopsy. At times ([id number]) can present with an infiltrate like picture. Would continue w/ BD, ABX Rocephin and Zithromax. Likely has COPD. Inhaled Steroids and LABA. We will follow along.
[2016-08-22] MEDS: Albuterol-Ipratrop 3 mg / 0.5 (3 ml) UD IH SCH (20:00)
[2016-08-23] MEDS: Albuterol-Ipratrop 3 mg / 0.5 (3 ml) UD IH SCH ×4 (01:47→19:42)
[2016-08-23] MEDS: Sodium Chloride 0.9% 1,000 ML IV SCH ×2 (03:33→14:57)
[2016-08-23] MEDS: Pantoprazole 40 mg EC Tab PO SCH (05:11)
[2016-08-23 07:14] LABS: BLOOD UREA NITROGEN 9 mg/dL (7-21); CALCIUM 8.3 mg/dL (8.4-10.5); GFR AFRICAN-AMERICAN > 60; GFR NON-AFRICAN AMERICAN > 60
--- NOTE | 2016-08-23 08:06 | CP.PCM.PN ---
<Austen Johnson - Last Filed: 08/23/16 09:05> Subjective - Date & Time of Evaluation Date of Evaluation: 08/23/16 Time of Evaluation: 07:00 - Subjective Subjective: PGY5 GI Fellow Progress Note Patient seen and examined bedside this morning. He states he is feeling better overall but cough persists. Denies any BM since arrival. No nausea, vomiting, fever, chills. 12 system ROS performed and negative except where stated. Objective - Vital Signs/Intake and Output Vital Signs (last 24 hours): Temp Pulse Resp BP Pulse Ox 99.3 F 58 L 20 113/69 98 08/22/16 16:00 08/22/16 16:00 08/22/16 16:00 08/22/16 16:00 08/22/16 16:00 - Medications Medications: Current Medications Albuterol/Ipratropium (Duoneb 3 Mg/0.5 Mg (3 Ml) Ud) 3 ml IH [id number] [facility] Last Admin: 08/23/16 07:55 Dose: 3 ml Albuterol/Ipratropium (Duoneb 3 Mg/0.5 Mg (3 Ml) Ud) 3 ml IH Q2H PRN PRN Reason: Shortness of Breath Azithromycin (Zithromax) 250 mg PO DAILY [facility] PRN Reason: Protocol Stop: 08/26/16 23:59 Heparin Sodium (Porcine) (Heparin) 5,000 units SC Q12H [facility] PRN Reason: Protocol Last Admin: 08/23/16 05:08 Dose: 5,000 units Sodium Chloride (Sodium Chloride 0.9%) 1,000 mls @ 100 mls/hr IV .Q10H [facility] Last Admin: 08/23/16 03:33 Dose: 100 mls/hr Ceftriaxone Sodium (Rocephin 1 Gram Ivpb) 1 gm in 100 mls @ 100 mls/hr IVPB DAILY [facility] PRN Reason: Protocol Morphine Sulfate (Morphine) 4 mg IVP Q4H PRN PRN Reason: Pain, severe (8-10) Pantoprazole Sodium (Protonix Ec Tab) 40 mg PO 0600 [facility] Last Admin: 08/23/16 05:11 Dose: 40 mg - Labs Labs: 08/22/16 03:35 08/23/16 06:30 APTT 33.4 Seconds (23.7-30.8) H 08/22/16 03:35 - Constitutional Appears: Non-toxic, No Acute Distress - Eye Exam Eye Exam: EOMI, PERRL - ENT Exam ENT Exam: Mucous Membranes Moist - Respiratory Exam Respiratory Exam: Clear to Ausculation Bilateral. absent: Rales, Rhonchi, Wheezes - Cardiovascular Exam Cardiovascular Exam: RRR, +S1, +S2 - GI/Abdominal Exam GI & Abdominal Exam: Soft, Normal Bowel Sounds. absent: Distended, Firm, Guarding, Rigid, Tenderness, Organomegaly - Extremities Exam Extremities Exam: Normal Inspection. absent: Pedal Edema - Neurological Exam Neurological Exam: Alert, Awake, Oriented x3 - Psychiatric Exam Psychiatric exam: Normal Affect, Normal Mood - Skin Skin Exam: Dry, Warm Assessment and Plan - Assessment and Plan (Free Text) Assessment: Patient is a 56yo male with no significant PMHx who presents to the hospital with complaint of persistent cough and chest congestion as well as abdominal pain. -Abnormal CT of the chest - RLL lung nodule on initial imaging -Community Acquired Pneumonia -Unintentional weight loss -Epigastric abdominal pain, resolved at this time Plan: -Agree with antibiotic coverage for CAP - ceftriaxone/azithromycin -Patient scheduled for appointment with [facility], [place] on 08/29/16 at 220pm, instructed to arrive at 2pm to register and bring paper work for [facility] care -Will then be referred to our [facility]; will arrange for outpatient EGD /Colon in the coming weeks -Cont Protonix 40mg PO QAMAC; decrease NSAID use -Miralax 17g PO QD -Diet as tolerated <Hermilo Elias - Last Filed: 08/23/16 09:27> Objective - Vital Signs/Intake and Output Vital Signs (last 24 hours): Temp Pulse Resp BP Pulse Ox 98.9 F 58 L 20 118/68 97 08/23/16 08:34 08/23/16 08:34 08/23/16 08:34 08/23/16 08:34 08/23/16 08:34 - Medications Medications: Current Medications Albuterol/Ipratropium (Duoneb 3 Mg/0.5 Mg (3 Ml) Ud) 3 ml IH [id number] [facility] Last Admin: 08/23/16 07:55 Dose: 3 ml Albuterol/Ipratropium (Duoneb 3 Mg/0.5 Mg (3 Ml) Ud) 3 ml IH Q2H PRN PRN Reason: Shortness of Breath Azithromycin (Zithromax) 250 mg PO DAILY [facility] PRN Reason: Protocol Stop: 08/26/16 23:59 Heparin Sodium (Porcine) (Heparin) 5,000 units SC Q12H [facility] PRN Reason: Protocol Last Admin: 08/23/16 05:08 Dose: 5,000 units Sodium Chloride (Sodium Chloride 0.9%) 1,000 mls @ 100 mls/hr IV .Q10H [facility] Last Admin: 08/23/16 03:33 Dose: 100 mls/hr Ceftriaxone Sodium (Rocephin 1 Gram Ivpb) 1 gm in 100 mls @ 100 mls/hr IVPB DAILY [facility] PRN Reason: Protocol Morphine Sulfate (Morphine) 4 mg IVP Q4H PRN PRN Reason: Pain, severe (8-10) Pantoprazole Sodium (Protonix Ec Tab) 40 mg PO 0600 [facility] Last Admin: 08/23/16 05:11 Dose: 40 mg Polyethylene Glycol (Miralax) 17 gm PO DAILY [facility] - Labs Labs: 08/22/16 03:35 08/23/16 06:30 APTT 33.4 Seconds (23.7-30.8) H 08/22/16 03:35 Attending/Attestation - Attestation I have personally seen and examined this patient.: Yes I have fully participated in the care of the patient.: Yes I have reviewed all pertinent clinical information, including history, physical exam and plan: Yes Notes (Text): 08/23/16 09:25 56 year old male with admitted with cough and epigastric pain, found to have pneumonia and pulmonary nodule. 1. Epigastric pain 2. Weight loss Plan: -recommend treatment of his pneumonia with antibiotics -abdominal imaging was unremarkable, pain is improved with PPI -continue PPI -recommend outpatient egd/colon after acute issues resolve
[2016-08-23] MEDS: cefTRIAXone 1 gm 1 GM/100 ML BAG IVPB SCH (09:40)
[2016-08-23] MEDS: POLYETHYLENE GLYCOL 3350 17 GM/Dose PACKET PO SCH (09:40)
[2016-08-23 10:09] LABS: BASO # 0.04 K/mm3 (0.0-2.0); BASO % 0.4 % (0.0-3.0); EOS # 0.1 (0.0-0.7); GRAN # 6.62 (1.4-6.5); GRAN % 67.5 % (50.0-68.0); HEMOGLOBIN 12.7 gm/dL (14.0-18.0); LYMPH # 2.4 (1.2-3.4); LYMPH % 24.9 % (22.0-35.0); MEAN CORPUSCULAR HEMOGLOBIN 31.6 pg (25.0-35.0); MEAN CORPUSCULAR HGB CONC 33.2 g/dl (31.0-37.0); MEAN PLATELET VOLUME 9.2 fl (7.0-11.0); MONO # 0.6 (0.1-0.6); MONO % 6.2 % (1.0-6.0); PLATELET COUNT 287 10^3/uL (120.0-450.0); RBC 4.02 10^6/uL (3.5-6.1); RED CELL DISTRIBUTION WIDTH 12.9 % (11.5-14.5); WHITE BLOOD COUNT 9.8 10^3/ul (4.5-11.0)
--- NOTE | 2016-08-23 11:33 | CP.PCM.PN ---
<Franca Power - Last Filed: 08/23/16 11:31> Subjective - Date & Time of Evaluation Date of Evaluation: 08/23/16 Time of Evaluation: 11:31 - Subjective Subjective: PGY-2 Pulm progress note Patient was seen and examined at bedside. No acute distress. Patient states hes feeling better. He continues to have cough but states that it is improving. He denies fever, chills, n/v. Tolerating diet. Objective - Vital Signs/Intake and Output Vital Signs (last 24 hours): Temp Pulse Resp BP Pulse Ox 98.9 F 58 L 20 118/68 97 08/23/16 08:34 08/23/16 08:34 08/23/16 08:34 08/23/16 08:34 08/23/16 08:34 - Medications Medications: Current Medications Albuterol/Ipratropium (Duoneb 3 Mg/0.5 Mg (3 Ml) Ud) 3 ml IH [id number] [facility] Last Admin: 08/23/16 07:55 Dose: 3 ml Albuterol/Ipratropium (Duoneb 3 Mg/0.5 Mg (3 Ml) Ud) 3 ml IH Q2H PRN PRN Reason: Shortness of Breath Arformoterol Tartrate (Brovana) 15 mcg IH [id number] [facility] Azithromycin (Zithromax) 250 mg PO DAILY [facility] PRN Reason: Protocol Stop: 08/26/16 23:59 Last Admin: 08/23/16 09:40 Dose: 250 mg Budesonide (Pulmicort Respules) 0.5 mg IH [id number] [facility] Calcium/Vitamin D (Oscal-D 250 Mg-125 Units Tab) 1 tab PO DAILY [facility] Heparin Sodium (Porcine) (Heparin) 5,000 units SC Q12H [facility] PRN Reason: Protocol Last Admin: 08/23/16 05:08 Dose: 5,000 units Sodium Chloride (Sodium Chloride 0.9%) 1,000 mls @ 100 mls/hr IV .Q10H [facility] Last Admin: 08/23/16 03:33 Dose: 100 mls/hr Ceftriaxone Sodium (Rocephin 1 Gram Ivpb) 1 gm in 100 mls @ 100 mls/hr IVPB DAILY [facility] PRN Reason: Protocol Last Admin: 08/23/16 09:40 Dose: 100 mls/hr Morphine Sulfate (Morphine) 4 mg IVP Q4H PRN PRN Reason: Pain, severe (8-10) Pantoprazole Sodium (Protonix Ec Tab) 40 mg PO 0600 [facility] Last Admin: 08/23/16 05:11 Dose: 40 mg Polyethylene Glycol (Miralax) 17 gm PO DAILY [facility] Last Admin: 08/23/16 09:40 Dose: 17 gm Tiotropium Lindsay (Spiriva) 18 mcg IH DAILY [facility] - Labs Labs: 08/23/16 06:30 08/23/16 06:30 APTT 33.4 Seconds (23.7-30.8) H 08/22/16 03:35 - Constitutional Appears: Well, No Acute Distress - Head Exam Head Exam: ATRAUMATIC, NORMOCEPHALIC - Eye Exam Eye Exam: Normal appearance - ENT Exam ENT Exam: Mucous Membranes Moist - Respiratory Exam Respiratory Exam: Clear to Ausculation Bilateral, NORMAL BREATHING PATTERN. absent: Rales, Rhonchi, Wheezes, Respiratory Distress - Cardiovascular Exam Cardiovascular Exam: REGULAR RHYTHM, +S1, +S2. absent: Tachycardia, Diastolic murmur, Murmur - GI/Abdominal Exam GI & Abdominal Exam: Soft, Tenderness, Normal Bowel Sounds. absent: Distended, Firm - Extremities Exam Extremities Exam: Normal Inspection. absent: Pedal Edema - Neurological Exam Neurological Exam: Alert, Awake, Oriented x3 - Skin Skin Exam: Dry, Intact, Normal Color, Warm Assessment and Plan - Assessment and Plan (Free Text) Assessment: 56 yo male with 60pk year smoking history presents with SOB, Cough, dyspnea and weight loss, found to have dense RLL infiltrate on CT chest. Plan: 1. SOB, cough - CT chest showed dense RLL infiltrate on CT chest, could be obscuring any underlying nodule or mass. - will treat for pneumonia due to with elevated WBC and chills, - pt at high risk for Malignancy. Repeat Chest Ct in 2 weeks - start brovana, pulmicort, and spiriva - Would continue w/ BD, ABX Rocephin and Zithromax. - upon discharge patient should continue use of Inhaled Steroids, LAMA and LABA. - PFTs upon discharge <Bay Jaquez - Last Filed: 08/23/16 14:07> Objective - Vital Signs/Intake and Output Vital Signs (last 24 hours): Temp Pulse Resp BP Pulse Ox 98.9 F 58 L 20 118/68 97 08/23/16 08:34 08/23/16 08:34 08/23/16 08:34 08/23/16 08:34 08/23/16 08:34 Intake and Output: 08/23/16 08/23/16 06:59 18:59 Intake Total 500 Balance 500 - Medications Medications: Current Medications Albuterol/Ipratropium (Duoneb 3 Mg/0.5 Mg (3 Ml) Ud) 3 ml IH [id number] [facility] Last Admin: 08/23/16 13:38 Dose: 3 ml Albuterol/Ipratropium (Duoneb 3 Mg/0.5 Mg (3 Ml) Ud) 3 ml IH Q2H PRN PRN Reason: Shortness of Breath Arformoterol Tartrate (Brovana) 15 mcg IH [id number] [facility] Azithromycin (Zithromax) 250 mg PO DAILY [facility] PRN Reason: Protocol Stop: 08/26/16 23:59 Last Admin: 08/23/16 09:40 Dose: 250 mg Budesonide (Pulmicort Respules) 0.5 mg IH [id number] [facility] Calcium/Vitamin D (Oscal-D 250 Mg-125 Units Tab) 1 tab PO DAILY [facility] Heparin Sodium (Porcine) (Heparin) 5,000 units SC Q12H [facility] PRN Reason: Protocol Last Admin: 08/23/16 05:08 Dose: 5,000 units Sodium Chloride (Sodium Chloride 0.9%) 1,000 mls @ 100 mls/hr IV .Q10H [facility] Last Admin: 08/23/16 03:33 Dose: 100 mls/hr Ceftriaxone Sodium (Rocephin 1 Gram Ivpb) 1 gm in 100 mls @ 100 mls/hr IVPB DAILY [facility] PRN Reason: Protocol Last Admin: 08/23/16 09:40 Dose: 100 mls/hr Morphine Sulfate (Morphine) 4 mg IVP Q4H PRN PRN Reason: Pain, severe (8-10) Pantoprazole Sodium (Protonix Ec Tab) 40 mg PO 0600 [facility] Last Admin: 08/23/16 05:11 Dose: 40 mg Polyethylene Glycol (Miralax) 17 gm PO DAILY [facility] Last Admin: 08/23/16 09:40 Dose: 17 gm Tiotropium Lindsay (Spiriva) 18 mcg IH DAILY [facility] - Labs Labs: 08/23/16 06:30 08/23/16 06:30 APTT 33.4 Seconds (23.7-30.8) H 08/22/16 03:35 Attending/Attestation - Attestation I have personally seen and examined this patient.: Yes I have fully participated in the care of the patient.: Yes I have reviewed all pertinent clinical information, including history, physical exam and plan: Yes Notes (Text): 08/23/16 13:57 56 yo male with community acquired pneumonia. Clinically improved on Ceftriaxone and azithromycin. CT chest suggests some emphysema which alone with ongoing h/o smoking suggests dx of chronic COPD. Will start triple inhaler therapy, recommend infection prophylaxis with vaccination, PFD after discharge. CT scan chest in 4 weeks, pulmonary or PMD follow up 7-10 days after discharge. DVT/GI prophylaxis.
--- NOTE | 2016-08-23 14:44 | CP.PCM.PN ---
<MIGUELINA SONG - Last Filed: 08/23/16 23:32> Subjective - Date & Time of Evaluation Date of Evaluation: 08/23/16 Time of Evaluation: 10:30 - Subjective Subjective: Patient was seen and examined bedside. Patient is still complaining of a dry cough, but states that it has improved, as well as night sweats; also states that his abdominal pain has improved. The patient states that he has not had a BM yet but that is normal for him because it takes him a while to get accustomed to a new place in order to have a BM. The patient denies fevers, headaches, chest pain, palpitations, sob, urinary changes, or any weakness. Objective - Vital Signs/Intake and Output Vital Signs (last 24 hours): Temp Pulse Resp BP Pulse Ox 98.9 F 58 L 20 118/68 97 08/23/16 08:34 08/23/16 08:34 08/23/16 08:34 08/23/16 08:34 08/23/16 08:34 Intake and Output: 08/23/16 08/23/16 06:59 18:59 Intake Total 500 Balance 500 - Medications Medications: Current Medications Albuterol/Ipratropium (Duoneb 3 Mg/0.5 Mg (3 Ml) Ud) 3 ml IH [id number] [facility] Last Admin: 08/23/16 13:38 Dose: 3 ml Albuterol/Ipratropium (Duoneb 3 Mg/0.5 Mg (3 Ml) Ud) 3 ml IH Q2H PRN PRN Reason: Shortness of Breath Arformoterol Tartrate (Brovana) 15 mcg IH [id number] [facility] Azithromycin (Zithromax) 250 mg PO DAILY [facility] PRN Reason: Protocol Stop: 08/26/16 23:59 Last Admin: 08/23/16 09:40 Dose: 250 mg Budesonide (Pulmicort Respules) 0.5 mg IH [id number] [facility] Calcium/Vitamin D (Oscal-D 250 Mg-125 Units Tab) 1 tab PO DAILY [facility] Heparin Sodium (Porcine) (Heparin) 5,000 units SC Q12H [facility] PRN Reason: Protocol Last Admin: 08/23/16 05:08 Dose: 5,000 units Sodium Chloride (Sodium Chloride 0.9%) 1,000 mls @ 100 mls/hr IV .Q10H [facility] Last Admin: 08/23/16 03:33 Dose: 100 mls/hr Ceftriaxone Sodium (Rocephin 1 Gram Ivpb) 1 gm in 100 mls @ 100 mls/hr IVPB DAILY [facility] PRN Reason: Protocol Last Admin: 08/23/16 09:40 Dose: 100 mls/hr Morphine Sulfate (Morphine) 4 mg IVP Q4H PRN PRN Reason: Pain, severe (8-10) Pantoprazole Sodium (Protonix Ec Tab) 40 mg PO 0600 [facility] Last Admin: 08/23/16 05:11 Dose: 40 mg Polyethylene Glycol (Miralax) 17 gm PO DAILY [facility] Last Admin: 08/23/16 09:40 Dose: 17 gm Tiotropium [place] (Spiriva) 18 mcg IH DAILY [facility] - Labs Labs: 08/23/16 06:30 08/23/16 06:30 APTT 33.4 Seconds (23.7-30.8) H 08/22/16 03:35 - Constitutional Appears: Well, No Acute Distress, Cachectic, Chronically Ill - Head Exam Head Exam: ATRAUMATIC, NORMOCEPHALIC - Eye Exam Eye Exam: EOMI, Normal appearance, PERRL - ENT Exam ENT Exam: Mucous Membranes Moist, Normal Exam - Respiratory Exam Respiratory Exam: Clear to Ausculation Bilateral, NORMAL BREATHING PATTERN. absent: Accessory Muscle Use, Chest Wall Tenderness, Rales, Rhonchi, Wheezes, Respiratory Distress, Stridor - Cardiovascular Exam Cardiovascular Exam: RRR, +S1, +S2. absent: Gallop, JVD, Rubs, Murmur - GI/Abdominal Exam GI & Abdominal Exam: Soft, Tenderness (RLQ and suprapubic region, improved from prior exam), Normal Bowel Sounds. absent: Distended - Neurological Exam Neurological Exam: Alert, Awake, Oriented x3 - Psychiatric Exam Psychiatric exam: Normal Affect, Normal Mood - Skin Skin Exam: Normal Color, Warm Assessment and Plan - Assessment and Plan (Free Text) Assessment: 56yo M with PMH of tobacco abuse p/w abdominal pain, malaise, cough and subjective fevers and night chills. Plan: CAP - Chest CT: patchy dense consolidation in RLL and minimal patchy infiltrate at L lung base. suggests some background COPD/emphysema - pulm consulted, recs appreciated - started on Ceftriaxone and azithromycin day 1, per pulm - Pulm recs: start triple inhaler therapy, recommend infection prophylaxis with vaccination, PFD after discharge. CT scan chest in 4 weeks. Pulmonary or PMD follow up 7-10 days after discharge. Abdominal pain, improving - GI consulted, recs appreciated - continue PPI per GI - GI recommends outpatient egd/colon after acute issues resolve Weight loss - unintentional 15lbs in 2 months - Residential Caregiver eval ordered - PT eval DVT/GI ppx: heparin/PTX Patient was examined, discussed and evaluated with attending, Dr. Bethany Song, PGY1 <Lyubov Sims - Last Filed: 08/24/16 15:09> Objective - Vital Signs/Intake and Output Vital Signs (last 24 hours): Temp Pulse Resp BP Pulse Ox 98.7 F 65 20 111/75 95 08/24/16 09:03 08/24/16 09:03 08/24/16 09:03 08/24/16 09:03 08/24/16 09:03 Intake and Output: 08/24/16 08/24/16 06:59 18:59 Intake Total 2039 Balance 2039 - Medications Medications: Current Medications Albuterol/Ipratropium (Duoneb 3 Mg/0.5 Mg (3 Ml) Ud) 3 ml IH [id number] [facility] Last Admin: 08/24/16 08:04 Dose: 3 ml Albuterol/Ipratropium (Duoneb 3 Mg/0.5 Mg (3 Ml) Ud) 3 ml IH Q2H PRN PRN Reason: Shortness of Breath Arformoterol Tartrate (Brovana) 15 mcg IH [id number] [facility] Last Admin: 08/24/16 08:04 Dose: 15 mcg Azithromycin (Zithromax) 250 mg PO DAILY [facility] PRN Reason: Protocol Stop: 08/26/16 23:59 Last Admin: 08/24/16 09:56 Dose: 250 mg Budesonide (Pulmicort Respules) 0.5 mg IH [id number] [facility] Last Admin: 08/24/16 08:04 Dose: 0.5 mg Calcium/Vitamin D (Oscal-D 250 Mg-125 Units Tab) 1 tab PO DAILY [facility] Last Admin: 08/24/16 09:56 Dose: 1 tab Heparin Sodium (Porcine) (Heparin) 5,000 units SC Q12H [facility] PRN Reason: Protocol Last Admin: 08/24/16 05:34 Dose: 5,000 units Sodium Chloride (Sodium Chloride 0.9%) 1,000 mls @ 100 mls/hr IV .Q10H [facility] Last Admin: 08/24/16 01:00 Dose: 100 mls/hr Ceftriaxone Sodium (Rocephin 1 Gram Ivpb) 1 gm in 100 mls @ 100 mls/hr IVPB DAILY [facility] PRN Reason: Protocol Last Admin: 08/24/16 09:56 Dose: 100 mls/hr Morphine Sulfate (Morphine) 4 mg IVP Q4H PRN PRN Reason: Pain, severe (8-10) Pantoprazole Sodium (Protonix Ec Tab) 40 mg PO 0600 [facility] Last Admin: 08/24/16 05:34 Dose: 40 mg Polyethylene Glycol (Miralax) 17 gm PO DAILY [facility] Last Admin: 08/24/16 09:56 Dose: 17 gm Tiotropium [place] (Spiriva) 18 mcg IH DAILY [facility] Last Admin: 08/24/16 09:56 Dose: 18 mcg - Labs Labs: 08/24/16 11:01 08/24/16 07:00 APTT 33.4 Seconds (23.7-30.8) H 08/22/16 03:35 Attending/Attestation - Attestation I have personally seen and examined this patient.: Yes I have fully participated in the care of the patient.: Yes I have reviewed all pertinent clinical information, including history, physical exam and plan: Yes Notes (Text): I have seen and examined the patient at bedside. Agree with the above note with the following additions/ exceptions: Briefly this is 56 year male with history of tobacco use who was admitted with CAP. Continue rocephin and zithromax. Pulm consult appreciated. He will need outpatient PFT's and repeat CT scan in 4 weeks. He also gave history of unintentional weight loss and past history of melena. GI consult appreciated and outpatient endoscopy and colonoscopy are recommended. He still complains of abdominal pain. Miralax was given. Upon discharge patient will follow up with [facility], traveling nurse and implementation coordinator. Dr Lyubov Sims
[2016-08-23] MEDS: Tiotropium 18 mcg Cap For Inhalation IH SCH (14:57)
[2016-08-23] MEDS: Calcium-Vit D 250 mg-125 Units Tab UD PO SCH (14:57)
[2016-08-23] MEDS: Budesonide 0.5 mg/2 ml Inhal Susp UD IH SCH (19:42)
[2016-08-23] MEDS: Arformoterol 15 mcg/2 ml Inh Sol IH SCH (19:42)
[2016-08-24] MEDS: Sodium Chloride 0.9% 1,000 ML IV SCH (01:00)
[2016-08-24] MEDS: Albuterol-Ipratrop 3 mg / 0.5 (3 ml) UD IH SCH ×2 (01:44→08:04)
[2016-08-24] MEDS: Pantoprazole 40 mg EC Tab PO SCH (05:34)
[2016-08-24] MEDS: Arformoterol 15 mcg/2 ml Inh Sol IH SCH (08:04)
[2016-08-24] MEDS: Budesonide 0.5 mg/2 ml Inhal Susp UD IH SCH (08:04)
[2016-08-24 08:11] LABS: BLOOD UREA NITROGEN 11 mg/dL (7-21); CALCIUM 8.6 mg/dL (8.4-10.5); GFR AFRICAN-AMERICAN > 60; GFR NON-AFRICAN AMERICAN > 60
[2016-08-24 09:04] VITALS: BP 111/75; PULSE 65; RESP 20; TEMP 98.7; O2SAT 95
[2016-08-24] MEDS: Tiotropium 18 mcg Cap For Inhalation IH SCH (09:56)
[2016-08-24] MEDS: cefTRIAXone 1 gm 1 GM/100 ML BAG IVPB SCH (09:56)
[2016-08-24] MEDS: POLYETHYLENE GLYCOL 3350 17 GM/Dose PACKET PO SCH (09:56)
[2016-08-24] MEDS: Calcium-Vit D 250 mg-125 Units Tab UD PO SCH (09:56)
[2016-08-24 11:14] LABS: BASO # 0.04 K/mm3 (0.0-2.0); BASO % 0.4 % (0.0-3.0); EOS # 0.1 (0.0-0.7); EOS % 0.7 % (1.5-5.0); GRAN # 7.29 (1.4-6.5); GRAN % 74.1 % (50.0-68.0); LYMPH # 1.9 (1.2-3.4); LYMPH % 19.2 % (22.0-35.0); MEAN CELL VOLUME 95.4 fL (80.0-105.0); MEAN CORPUSCULAR HEMOGLOBIN 31.8 pg (25.0-35.0); MEAN CORPUSCULAR HGB CONC 33.3 g/dl (31.0-37.0); MEAN PLATELET VOLUME 9.1 fl (7.0-11.0); MONO # 0.6 (0.1-0.6); MONO % 5.6 % (1.0-6.0); PLATELET COUNT 326 10^3/uL (120.0-450.0); RBC 4.09 10^6/uL (3.5-6.1); RED CELL DISTRIBUTION WIDTH 12.8 % (11.5-14.5); WHITE BLOOD COUNT 9.8 10^3/ul (4.5-11.0)
--- NOTE | 2016-08-25 11:16 | CP.PCM.DIS ---
<MIGUELINA ZAMUDIO - Last Filed: 08/25/16 13:21> Provider - Provider Date of Admission: 08/22/16 02:07 Attending physician: Lyubov Sims MD Primary care physician: NO PRIMARY CARE PROVIDER Time Spent in preparation of Discharge (in minutes): 45 Hospital Course - Lab Results Lab Results: Most Recent Lab Values WBC 9.8 10^3/ul (4.5-11.0) 08/24/16 11:01 RBC 4.09 10^6/uL (3.5-6.1) 08/24/16 11:01 Hgb 13.0 gm/dL (14.0-18.0) L 08/24/16 11:01 Hct 39.0 % (42.0-52.0) L 08/24/16 11:01 MCV 95.4 fL (80.0-105.0) 08/24/16 11:01 MCH 31.8 pg (25.0-35.0) 08/24/16 11:01 MCHC 33.3 g/dl (31.0-37.0) 08/24/16 11:01 RDW 12.8 % (11.5-14.5) 08/24/16 11:01 Plt Count 326 10^3/uL (120.0-450.0) 08/24/16 11:01 MPV 9.1 fl (7.0-11.0) 08/24/16 11:01 Gran % 74.1 % (50.0-68.0) H 08/24/16 11:01 Lymph % (Auto) 19.2 % (22.0-35.0) L 08/24/16 11:01 [place] % (Auto) 5.6 % (1.0-6.0) 08/24/16 11:01 Eos % (Auto) 0.7 % (1.5-5.0) L 08/24/16 11:01 Baso % (Auto) 0.4 % (0.0-3.0) 08/24/16 11:01 Gran # 7.29 (1.4-6.5) H 08/24/16 11:01 Lymph # 1.9 (1.2-3.4) 08/24/16 11:01 [place] # 0.6 (0.1-0.6) 08/24/16 11:01 Eos # 0.1 (0.0-0.7) 08/24/16 11:01 Baso # 0.04 K/mm3 (0.0-2.0) 08/24/16 11:01 APTT 33.4 Seconds (23.7-30.8) H 08/22/16 03:35 Sodium 143 mmol/L (132-148) 08/24/16 07:00 Potassium 4.0 mmol/L (3.6-5.0) 08/24/16 07:00 Chloride 107 mmol/L (95-110) 08/24/16 07:00 Carbon Dioxide 26 mmol/L (21-33) 08/24/16 07:00 Anion Gap 14 (10-20) 08/24/16 07:00 BUN 11 mg/dL (7-21) 08/24/16 07:00 Creatinine 0.7 mg/dL (0.5-1.4) 08/24/16 07:00 Est GFR ( Amer) > 60 08/24/16 07:00 Est GFR (Non-Af Amer) > 60 08/24/16 07:00 Random Glucose 91 mg/dL (70-110) 08/24/16 07:00 Calcium 8.6 mg/dL (8.4-10.5) 08/24/16 07:00 Total Bilirubin 0.9 mg/dL (0.2-1.3) 08/22/16 00:00 AST 29 U/L (15-59) 08/22/16 00:00 ALT 24 U/L (7-56) 08/22/16 00:00 Alkaline Phosphatase 93 U/L (38-133) 08/22/16 00:00 Total Protein 7.4 g/dL (5.8-8.3) 08/22/16 00:00 Albumin 4.1 g/dL (3.0-4.8) 08/22/16 00:00 Globulin 3.4 gm/dL 08/22/16 00:00 Albumin/Globulin Ratio 1.2 (1.1-1.8) 08/22/16 00:00 Amylase 79 U/L (35-125) 08/22/16 00:00 Lipase 65 U/L (23-300) 08/22/16 00:00 Urine Color Yellow (YELLOW) 08/22/16 00:00 Urine Appearance Clear (CLEAR) 08/22/16 00:00 Urine pH 6.0 (4.7-8.0) 08/22/16 00:00 Ur Specific Gordon 1.020 (1.005-1.035) 08/22/16 00:00 Urine Protein Negative mg/dL (<30 mg/dL) 08/22/16 00:00 Urine Glucose (UA) Negative mg/dL (NEGATIVE) 08/22/16 00:00 Urine Ketones Trace mg/dL (NEGATIVE) H 08/22/16 00:00 Urine Blood Negative (NEGATIVE) 08/22/16 00:00 Urine Nitrate Negative (NEGATIVE) 08/22/16 00:00 Urine Bilirubin Negative (NEGATIVE) 08/22/16 00:00 Urine Urobilinogen 0.2 E.U./dL (<1 E.U./dL) 08/22/16 00:00 Ur Leukocyte Esterase Negative Jaelyn/uL (NEGATIVE) 08/22/16 00:00 - Hospital Course Hospital Course: Mr. Wilkerson is a 55 year old male with PMHx of smoke dependence (40 pk yr) and an episode of melena in 04/2016 presents to [facility] ED on 08/21/2016 with complaints of general malaise, fever, cough and abdominal pain. Patient states that two weeks ago is when the cough and chills started. About ten days later he noticed he started having abdominal pain in the epigastric region. Patient states that this pain lasts throughout the day and is sharp as if a knife is stabbing. The pain is 10/10 and non radiating. Patient states that the pain is exacerbated with certain movements, especially coughing. Patient denies n/v, chest pain, shortness of breath, headache. Patient admits to recent episodes of morning diarrhea and evening constipation, as well as an episode of lightheadedness. Patient said today he felt as if he were going to fall while he was walking and this prompted him to get checked our further. In ED, Ct Abdomen and Pelvis showed 19mm RLL pulmonary nodule. Pt was transported to the medicine floors for further workup and management. Pulmonology and GI were consulted. GI appt was made at [facility] for 08/29 at 2:20 pm, pt needs to be there by 2 pm. Pulm recommended treating the patient for pneumonia considering the CT findings and the presence of leukocytosis, chills and a productive cough. Pt also found to have lost 15lbs in the last two months and stool caliber change and appears cachectic, worrisome of malignancy. Pulm recommended that CT chest be repeated in 2 weeks post-discharge for determining if RLL should be biopsied. Orthostatics were negative (both SBP and DBP increased upon standing). Patient was started on antibiotics, and duoneb treatments for underlying COPD. Patient received two days of abx treatment and his abd pain and cough have improved. On the morning of his discharge, the patient states that his abdominal pain has improved, that he had a BM that morning and that his shortness of breath has also improved. Pt was informed about that he needs to f/u with PMD to workup his COPD and to schedule his CT scan. Pt also instructed to f/u pulm and GI outpatient for workup of his nodule and to get EGD/colonoscopy done to workup his melena. Pt discharged on Doxycycline 100mg BID for a week amd albuterol pump PRN. - Date & Time of H&P Date of H&P: 08/22/16 Time of H&P: 03:20 Discharge Exam - Head Exam Head Exam: ATRAUMATIC, NORMOCEPHALIC - Eye Exam Eye Exam: EOMI, Normal appearance, PERRL Pupil Exam: NORMAL ACCOMODATION - ENT Exam ENT Exam: Mucous Membranes Moist, Normal Exam - Respiratory Exam Respiratory Exam: Clear to PA & Lateral, NORMAL BREATHING PATTERN. absent: Accessory Muscle Use, Chest Wall Tenderness, Rales, Rhonchi, Wheezes, Respiratory Distress, Stridor - Cardiovascular Exam Cardiovascular Exam: REGULAR RHYTHM, RRR, +S1, +S2. absent: Gallop, JVD, Rubs, Systolic Murmur - GI/Abdominal Exam GI & Abdominal Exam: Normal Bowel Sounds, Soft, Tenderness (mild). absent: Distended - Neurological Exam Neurological exam: Alert, Normal Gait, Oriented x3 - Psychiatric Exam Psychiatric exam: Normal Affect, Normal Mood - Skin Skin Exam: Normal Color (pt looks cachetic, chronically ill), Warm Discharge Plan - Discharge Medications Prescriptions: Albuterol 0.083% [Albuterol 0.083% Inhal Stephanie (2.5 mg/3 ml) UD] 2.5 mg IH PRN PRN #3 neb PRN Reason: Wheezing Arformoterol [Brovana] 15 mcg IH [id number] #5 Budesonide [Pulmicort Respules] 0.5 mg IH [id number] #5 Doxycycline Hyclate [Doryx] 100 mg PO Q12 #14 cap Pantoprazole Sodium [Protonix] 20 mg PO DAILY #7 ect Tiotropium [Spiriva] 18 mcg IH DAILY #5 cap - Follow Up Plan Condition: STABLE Disposition: HOME/ ROUTINE Instructions: Pneumonia (DC) Additional Instructions: Mr. Wilkerson, You were treated for a pneumonia and are being discharged with the following instructions: 1. Please follow up at the [facility] within 1 week. Make an appointment by dialing [phone] and go through the list as a new patient at the clinic. - They will order you a CT Chest to be done in 2-4 weeks. It is important for you to get this scan done to rule out any underlying serious conditions. 2. Please follow up with a financial sales advisor (lung doctor) for your pneumonia and cough. 3. Please follow up with Dr. Hernandez (coal bagger: stomach doctor) for your belly pain and change in stool caliber and frequency. You require an EGD/ colonscopy and will be given an appointment at [facility] next week. Medications: Doxycycline: Take ONE 100mg cap EVERY 12 HOURS for one week Protonix: Take ONE 20mg tab EVERY DAY for one week Albuterol: Take ONE puff when you feel short of breath If constipated, Miralax is sold at most stores and would help you move your bowels If you feel any chest pain, abdominal pain, blood in your stools, cough, or vomit, please go to the ER for a workup. Thank you, Miguelina Zamudio, PGY1 Dr. Sims, Attending Physician Referrals: PCP,NO [Primary Care Provider] - <Lyubov Sims - Last Filed: 09/01/16 14:52> Provider - Provider Date of Admission: 08/22/16 02:07 Attending physician: Lyubov Sims MD Primary care physician: NO PRIMARY CARE PROVIDER Hospital Course - Lab Results Lab Results: Most Recent Lab Values WBC 9.8 10^3/ul (4.5-11.0) 08/24/16 11:01 RBC 4.09 10^6/uL (3.5-6.1) 08/24/16 11:01 Hgb 13.0 gm/dL (14.0-18.0) L 08/24/16 11:01 Hct 39.0 % (42.0-52.0) L 08/24/16 11:01 MCV 95.4 fL (80.0-105.0) 08/24/16 11:01 MCH 31.8 pg (25.0-35.0) 08/24/16 11:01 MCHC 33.3 g/dl (31.0-37.0) 08/24/16 11:01 RDW 12.8 % (11.5-14.5) 08/24/16 11:01 Plt Count 326 10^3/uL (120.0-450.0) 08/24/16 11:01 MPV 9.1 fl (7.0-11.0) 08/24/16 11:01 Gran % 74.1 % (50.0-68.0) H 08/24/16 11:01 Lymph % (Auto) 19.2 % (22.0-35.0) L 08/24/16 11:01 [place] % (Auto) 5.6 % (1.0-6.0) 08/24/16 11:01 Eos % (Auto) 0.7 % (1.5-5.0) L 08/24/16 11:01 Baso % (Auto) 0.4 % (0.0-3.0) 08/24/16 11:01 Gran # 7.29 (1.4-6.5) H 08/24/16 11:01 Lymph # 1.9 (1.2-3.4) 08/24/16 11:01 [place] # 0.6 (0.1-0.6) 08/24/16 11:01 Eos # 0.1 (0.0-0.7) 08/24/16 11:01 Baso # 0.04 K/mm3 (0.0-2.0) 08/24/16 11:01 APTT 33.4 Seconds (23.7-30.8) H 08/22/16 03:35 Sodium 143 mmol/L (132-148) 08/24/16 07:00 Potassium 4.0 mmol/L (3.6-5.0) 08/24/16 07:00 Chloride 107 mmol/L (95-110) 08/24/16 07:00 Carbon Dioxide 26 mmol/L (21-33) 08/24/16 07:00 Anion Gap 14 (10-20) 08/24/16 07:00 BUN 11 mg/dL (7-21) 08/24/16 07:00 Creatinine 0.7 mg/dL (0.5-1.4) 08/24/16 07:00 Est GFR ( Amer) > 60 08/24/16 07:00 Est GFR (Non-Af Amer) > 60 08/24/16 07:00 Random Glucose 91 mg/dL (70-110) 08/24/16 07:00 Calcium 8.6 mg/dL (8.4-10.5) 08/24/16 07:00 Total Bilirubin 0.9 mg/dL (0.2-1.3) 08/22/16 00:00 AST 29 U/L (15-59) 08/22/16 00:00 ALT 24 U/L (7-56) 08/22/16 00:00 Alkaline Phosphatase 93 U/L (38-133) 08/22/16 00:00 Total Protein 7.4 g/dL (5.8-8.3) 08/22/16 00:00 Albumin 4.1 g/dL (3.0-4.8) 08/22/16 00:00 Globulin 3.4 gm/dL 08/22/16 00:00 Albumin/Globulin Ratio 1.2 (1.1-1.8) 08/22/16 00:00 Amylase 79 U/L (35-125) 08/22/16 00:00 Lipase 65 U/L (23-300) 08/22/16 00:00 Urine Color Yellow (YELLOW) 08/22/16 00:00 Urine Appearance Clear (CLEAR) 08/22/16 00:00 Urine pH 6.0 (4.7-8.0) 08/22/16 00:00 Ur Specific Gordon 1.020 (1.005-1.035) 08/22/16 00:00 Urine Protein Negative mg/dL (<30 mg/dL) 08/22/16 00:00 Urine Glucose (UA) Negative mg/dL (NEGATIVE) 08/22/16 00:00 Urine Ketones Trace mg/dL (NEGATIVE) H 08/22/16 00:00 Urine Blood Negative (NEGATIVE) 08/22/16 00:00 Urine Nitrate Negative (NEGATIVE) 08/22/16 00:00 Urine Bilirubin Negative (NEGATIVE) 08/22/16 00:00 Urine Urobilinogen 0.2 E.U./dL (<1 E.U./dL) 08/22/16 00:00 Ur Leukocyte Esterase Negative Jaelyn/uL (NEGATIVE) 08/22/16 00:00 Attending/Attestation - Attestation I have personally seen and examined this patient.: Yes I have fully participated in the care of the patient.: Yes I have reviewed all pertinent clinical information, including history, physical exam and plan: Yes Notes (Text): I have seen and examined the patient at bedside. Agree with the above note with the following additions/ exceptions: Briefly this is 56 year male with history of tobacco use who was admitted with CAP. Continue rocephin and zithromax. Pulm consult appreciated. He will need outpatient PFT's and repeat CT scan in 4 weeks. He also gave history of unintentional weight loss and past history of melena. GI consult appreciated and outpatient endoscopy and colonoscopy are recommended. His abdominal pain improved after he had BM s/p Miralax. Upon discharge patient will follow up with [facility], financial sales advisor and coal bagger. Dr Lyubov Sims
== END 2016-08-24 16:37 | disposition home or self-care (01) | DRG 190 ==
LOC: ED 22:46 → ERH 08-22 02:07 → 3RNO 08-22 02:50
PROVIDERS: ADMIT Hospitalist; ATTEND Hospitalist
DX: J44.0 Chronic obstructive pulmonary disease with (acute) lower respiratory infection (principal); J18.9 Pneumonia, unspecified organism; R64 Cachexia; Z68.1 Body mass index [BMI] 19.9 or less, adult; R10.13 Epigastric pain; R91.1 Solitary pulmonary nodule; Z87.891 Personal history of nicotine dependence

== ENCOUNTER 2017-10-07 20:10 | Inpatient (IN) | payer MEDICAID, OTHER ==
[2017-10-07 20:51] VITALS: BMI 22.3
--- NOTE | 2017-10-07 21:34 | ED PDOC ---
Arrival/HPI - General Chief Complaint: Fever Time Seen by Provider: 10/07/17 20:15 Historian: Patient - History of Present Illness Narrative History of Present Illness (Text): 10/07/17 21:29 57 year old male, whose past medical history includes pneumonia, presents to the emergency department complaining of fever, chills, productive cough, and pleuritic chest pain for the past couple of days. Patient also reports occasional shortness of breath. Patient denies any nausea, vomiting, diarrhea, urinary symptoms, back pain, neck pain, headache, dizziness, or any other complaints. PMD: None Time/Duration: Other (few days) Symptom Onset: Gradual Symptom Course: Unchanged Activities at Onset: Light Context: Home Past Medical History - Provider Review Nursing Documentation Reviewed: Yes - Infectious Disease Hx of Infectious Diseases: None - Cardiac Hx Cardiac Disorders: No - Pulmonary Hx Respiratory Disorders: No - Neurological Hx Neurological Disorder: No - HEENT Hx HEENT Disorder: No - Renal Hx Renal Disorder: No - Endocrine/Metabolic Hx Endocrine Disorders: No - Hematological/Oncological Hx Blood Disorders: No - Integumentary Hx Dermatological Disorder: No - Musculoskeletal/Rheumatological Hx Musculoskeletal Disorders: No - Gastrointestinal Hx Gastrointestinal Disorders: No - Genitourinary/Gynecological Hx Genitourinary Disorders: No - Psychiatric Hx Psychophysiologic Disorder: No Hx Substance Use: No - Anesthesia Hx Anesthesia: No Hx Anesthesia Reactions: No Hx Malignant Hyperthermia: No - Suicidal Assessment Feels Threatened In Home Enviroment: No Family/Social History - Physician Review Nursing Documentation Reviewed: Yes Family/Social History: No Known Family HX Smoking Status: Current Some Days Smoker Hx Alcohol Use: No Hx Substance Use: No Allergies/Home Meds Allergies/Adverse Reactions: Allergies No Known Allergies Allergy (Verified 10/07/17 20:46) Review of Systems - Physician Review All systems were reviewed & negative as marked: Yes - Review of Systems Constitutional: Fevers, Other (Chills) Respiratory: SOB, Cough Cardiovascular: Chest Pain Gastrointestinal: absent: Diarrhea, Nausea, Vomiting Genitourinary Male: absent: Dysuria, Frequency, Hematuria Musculoskeletal: absent: Back Pain, Neck Pain Neurological: absent: Headache, Dizziness Physical Exam Vital Signs Reviewed: Yes Vital Signs Temp Pulse Resp BP Pulse Ox 10/07/17 23:42 63 16 100/63 100 10/07/17 20:46 99.9 F H 70 18 118/71 98 08/27/18 20:45 99.9 F H 70 18 118/71 98 Temperature: Febrile Blood Pressure: Normal Pulse: Regular Respiratory Rate: Normal Appearance: Positive for: Well-Appearing, Non-Toxic, Comfortable Pain Distress: None Mental Status: Positive for: Alert and Oriented X 3 - Systems Exam Head: Present: Atraumatic, Normocephalic Pupils: Present: PERRL Extroacular Muscles: Present: EOMI Conjunctiva: Present: Normal Mouth: Present: Moist Mucous Membranes Neck: Present: Normal Range of Motion Respiratory/Chest: Present: Rhonchi (few scattered rhonchi at the right lung field). No: Respiratory Distress, Accessory Muscle Use Cardiovascular: Present: Regular Rate and Rhythm, Normal S1, S2. No: Murmurs Abdomen: No: Tenderness, Distention, Peritoneal Signs Back: Present: Normal Inspection Upper Extremity: Present: Normal Inspection. No: Cyanosis, Edema Lower Extremity: Present: Normal Inspection. No: Edema Neurological: Present: GCS=15, CN II-XII Intact, Speech Normal Skin: Present: Warm, Dry, Normal Color. No: Rashes Psychiatric: Present: Alert, Oriented x 3, Normal Insight, Normal Concentration Medical Decision Making ED Course and Treatment: 10/07/17 21:35 Impression: 57 year old male presents complaining of fever, chills, productive cough, pleuritic chest pain, and occasional shortness of breath for the past couple of days. Plan: -- VBG -- EKG -- Labs -- Chest X-ray -- IV Fluids -- Blood Culture, Urine Culture -- Urinalysis -- Reassess and disposition Prior Visits: Notes and results from previous visits were reviewed. Progress Notes: 10/07/17 21:55 EKG shows NSR at 76 BPM. Normal EKG. Interpreted by me. 10/07/17 23:35 CXR Impression: As read by me, right lower lobe infiltrate. 10/08/17 00:14 Case discussed with president and chief executive officer and Dr. Jones who is aware and agrees with the plan. Accepts patient into hospitalist service. - Lab Interpretations Lab Results: 10/07/17 21:29 10/07/17 21:29 Lab Results 10/07/17 21:29: Sodium 142, Chloride 103, Potassium 4.0, Carbon Dioxide 27, Anion Gap 15, BUN 23 H, Creatinine 0.8, Est GFR ( Amer) > 60, Est GFR ( Non-Af Amer) > 60, Random Glucose 95, Calcium 8.7, Total Bilirubin 0.7, AST 22, ALT 16, Alkaline Phosphatase 79, Total Protein 7.1, Albumin 3.8, Globulin 3.2, Albumin/Globulin Ratio 1.2 10/07/17 21:29: pO2 30, VBG pH 7.40, VBG pCO2 48.0, VBG HCO3 29.7 H, VBG Total CO2 31.2 H, VBG O2 Sat (Calc) 66.4 H, VBG Base Excess 4.0 H, VBG Potassium 4.0, Sodium 139.0, Chloride 104.0, Glucose 91, Lactate 1.0, FiO2 21.0, Venous Blood Potassium 4.0 10/07/17 21:29: PT 16.4 H, INR 1.43, APTT 32.7 10/07/17 21:29: WBC 11.9 H D, RBC 4.45, Hgb 14.0, Hct 41.0 L, MCV 92.1, MCH 31.5 , MCHC 34.1, RDW 12.8, Plt Count 270, MPV 8.8, Gran % 72.8 H, Lymph % (Auto) 20.7 L, Banks % (Auto) 5.3, Eos % (Auto) 0.9 L, Baso % (Auto) 0.3, Gran # 8.67 H , Lymph # (Auto) 2.5, Banks # (Auto) 0.6, Eos # (Auto) 0.1, Baso # (Auto) 0.03 I have reviewed the lab results: Yes - RAD Interpretation Radiology Orders: 10/07/17 21:02 CHEST PORTABLE [RAD] Stat - EKG Interpretation Interpreted by ED Physician: Yes Type: 12 lead EKG - Medication Orders Current Medication Orders: Acetaminophen (Tylenol 325mg Tab) 650 mg PO Q6H PRN PRN Reason: Fever >100.4 F Albuterol/Ipratropium (Duoneb 3 Mg/0.5 Mg (3 Ml) Ud) 3 ml IH Q8 LUIS Famotidine (Pepcid) 40 mg PO HS LUIS Guaifenesin/Dextromethorphan (Robitussin Dm) 5 ml PO Q4H PRN PRN Reason: Cough Heparin Sodium (Porcine) (Heparin) 5,000 units SC Q8 LUIS PRN Reason: Protocol Sodium Chloride (Sodium Chloride 0.9%) 1,000 mls @ 100 mls/hr IV .Q10H LUIS Azithromycin 250 mg/ Sodium (Chloride) 250 mls @ 167 mls/hr IVPB DAILY LUIS PRN Reason: Protocol Ibuprofen (Motrin Tab) 400 mg PO Q8 PRN PRN Reason: Pain, moderate (4-7) Nicotine (Nicoderm Cq) 1 patch TD DAILY LUIS Discontinued Medications Lactated Ringer's 1,770 ml/ IV (SUPPLIES) 1,770 mls @ 3,538.02 mls/hr IV ONCE ONE PRN Reason: 60 ML/KG/HR Stop: 10/07/17 21:03 Last Admin: 10/07/17 23:36 Dose: 3,538.02 mls/hr eMAR Start Stop Document 10/07/17 23:36 IT (Rec: 10/07/17 23:36 IT [id number]) Intravenous Solution Start Date 10/07/17 Start Time 23:36 Ceftriaxone Sodium (Rocephin 1 Gram Ivpb) 1 gm in 100 mls @ 200 mls/hr IV ONCE STA PRN Reason: Protocol Stop: 10/07/17 23:54 Last Admin: 10/07/17 23:36 Dose: 200 mls/hr eMAR Start Stop Document 10/07/17 23:36 IT (Rec: 10/07/17 23:36 IT [id number]) Intravenous Solution Start Date 10/07/17 Start Time 23:36 Azithromycin (Zithromax 500mg In Ns) 500 mg in 250 mls @ 166.667 mls/hr IV STAT STA PRN Reason: Protocol Stop: 10/08/17 00:54 Ketorolac Tromethamine (Toradol) 30 mg IVP STAT STA Stop: 10/08/17 01:27 - Scribe Statement The provider has reviewed the documentation as recorded by the Johnna Charles Provider Scribe Attestation: All medical record entries made by the Scribe were at my direction and personally dictated by me. I have reviewed the chart and agree that the record accurately reflects my personal performance of the history, physical exam, medical decision making, and the department course for this patient. I have also personally directed, reviewed, and agree with the discharge instructions and disposition. Disposition/Present on Arrival - Present on Arrival Any Indicators Present on Arrival: No History of DVT/PE: No History of Uncontrolled Diabetes: No Urinary Catheter: No History of Decub. Ulcer: No History Surgical Site Infection Following: None - Disposition Have Diagnosis and Disposition been Completed?: Yes Diagnosis: Pneumonia Disposition: HOSPITALIZED Disposition Time: 23:45 Condition: STABLE
[2017-10-07 21:49] LABS: VENOUS BLOOD GAS PO2 30 mm/Hg (30-55)
[2017-10-07 21:58] LABS: ALB/GLOB RATIO 1.2 (1.1-1.8); ALBUMIN 3.8 g/dL (3.0-4.8); ALT/SGPT 16 U/L (7-56); AST/SGOT 22 U/L (17-59); BLOOD UREA NITROGEN 23 mg/dL (7-21); CALCIUM 8.7 mg/dL (8.4-10.5); GFR NON-AFRICAN AMERICAN > 60
[2017-10-07 22:06] LABS: INR 1.43; PARTIAL THROMBOPLASTIN TIME 32.7 Seconds (25.1-36.5); PROTHROMBIN TIME 16.4 SECONDS (9.4-12.5)
[2017-10-07 22:07] LABS: BASO # 0.03 K/mm3 (0.0-2.0); BASO % 0.3 % (0.0-3.0); EOS # 0.1 (0.0-0.7); EOS % 0.9 % (1.5-5.0); GRAN # 8.67 (1.4-6.5); GRAN % 72.8 % (50.0-68.0); LYMPH # 2.5 (1.2-3.4); LYMPH % 20.7 % (22.0-35.0); MEAN CELL VOLUME 92.1 fl (80.0-105.0); MEAN CORPUSCULAR HEMOGLOBIN 31.5 pg (25.0-35.0); MEAN CORPUSCULAR HGB CONC 34.1 g/dl (31.0-37.0); MEAN PLATELET VOLUME 8.8 fl (7.0-11.0); MONO # 0.6 (0.1-0.6); MONO % 5.3 % (1.0-6.0); RBC 4.45 10^6/uL (3.5-6.1); RED CELL DISTRIBUTION WIDTH 12.8 % (11.5-14.5); WHITE BLOOD COUNT 11.9 10^3/ul (4.5-11.0)
[2017-10-07] MEDS ORDERED: Azithromycin 500MG/NS 250ml 500 MG/250 ML BAG IV STA (23:25)
[2017-10-07] MEDS ORDERED: cefTRIAXone 1 gm 1 GM/100 ML BAG IV STA (23:25)
--- NOTE | 2017-10-08 01:37 | CP.PCM.HP ---
<Brianna Alvarado - Last Filed: 10/08/17 01:49> History of Present Illness - History of Present Illness History of Present Illness: PGY-1 H&P For Dr. Barajas's service CC: fever, chills, headache, and cough HPI: Patient is a 57 yo male w/ PMH of lung nodule, episode of melena, and 1 episode of pneumonia a year ago. Patient was to followup with PMD to further workup the lung nodule and GI for possible colonscopy, however, patient reports although the appointments were made he did not go. Patient states his cough started 4 days ago with myalgias (most prominently in the leg). Patient states that he felt chills and felt like he had a fever but temperature at home was 98 degrees. Patient decided to come to the hospital because the cough was worsening to the point where it was causing headaches and he started to feel diaphoretic at 1 pm on 10/07. Patient states that his cough is productive and describes it to be a yellow phlegm. Patient states that deep breathing does not worsen the pain. Patient rates his headache pain as a 10/10. Patient states that he tried to take ibuprofen tab then took the liquid ibuprofen, however, both times he did not get any relief. Patient states that there is no sick contacts at home. Patient states he had a prior episode one year ago for which afterwards he decreased his smoking use from a pack a day to 2-3 cigarettes daily. Patient states he has never had a diagnosis of COPD to his knowledge but according to previous charts he was to get further workup s/p last admission for PNA in 2017. PMH- lung nodule (19mm); 1x episode of PNA PSH- Denies FH- Denies Meds- Denies Allergies- Denies Social Hx- 35 pack year; Denies alcohol and drug use Code: Full Code Review of Systems Pertinent Positives: fevers, chills, productive cough, diaphoresis, headaches, decreased appetite, weight loss Pertinent Negatives: chest pain, sob, n/v, constipation or diarrhea, numbness, tingling, lightheadedness, dizziness, sore throat, palpitations, urinary symptoms Present on Admission - Present on Admission Any Indicators Present on Admission: No Review of Systems - Constitutional Constitutional: Chills, Fever, Headache, Weight Loss. absent: Increased Appetite - EENT Eyes: absent: Blind Spots, Blurred Vision, Change in Vision Ears: absent: Dizziness Nose/Mouth/Throat: absent: Sore Throat - Cardiovascular Cardiovascular: Diaphoresis. absent: Chest Pain, Dyspnea, Rapid Heart Rate - Respiratory Respiratory: Cough. absent: Dyspnea, Hemoptysis - Gastrointestinal Gastrointestinal: absent: Abdominal Pain, Constipation, Diarrhea, Nausea, Vomiting - Genitourinary Genitourinary: absent: Change in Urinary Stream, Difficulty Urinating - Musculoskeletal Musculoskeletal: Muscle Cramps, Myalgias. absent: Numbness, Tingling - Neurological Neurological: Headaches. absent: Dizziness, Tingling Past Patient History - Infectious Disease Hx of Infectious Diseases: None - Past Social History Smoking Status: Current Some Days Smoker - CARDIAC Hx Cardiac Disorders: No - PULMONARY Hx Pneumonia: Yes - NEUROLOGICAL Hx Neurological Disorder: No - HEENT Hx HEENT Problems: No - RENAL Hx Chronic Kidney Disease: No - ENDOCRINE/METABOLIC Hx Endocrine Disorders: No - HEMATOLOGICAL/ONCOLOGICAL Hx Blood Disorders: No - INTEGUMENTARY Hx Dermatological Problems: No - MUSCULOSKELETAL/RHEUMATOLOGICAL Hx Musculoskeletal Disorders: No - GASTROINTESTINAL Hx Gastrointestinal Disorders: No - GENITOURINARY/GYNECOLOGICAL Hx Genitourinary Disorders: No - PSYCHIATRIC Hx Psychophysiologic Disorder: No Hx Substance Use: No - SURGICAL HISTORY Hx Surgeries: No - ANESTHESIA Hx Anesthesia: No Hx Anesthesia Reactions: No Hx Malignant Hyperthermia: No Meds Allergies/Adverse Reactions: Allergies Allergy/AdvReac Type Severity Reaction Status Date / Time No Known Allergies Allergy Verified 10/07/17 20:46 Physical Exam - Constitutional Appears: Non-toxic, No Acute Distress - Head Exam Head Exam: NORMAL INSPECTION, NORMOCEPHALIC - Eye Exam Eye Exam: EOMI, Normal appearance. absent: Nystagmus, Scleral icterus Pupil Exam: NORMAL ACCOMODATION - ENT Exam ENT Exam: Mucous Membranes Moist, Normal Exam - Respiratory Exam Respiratory Exam: Clear to Auscultation Bilateral, NORMAL BREATHING PATTERN. absent: Rales, Rhonchi, Wheezes - Cardiovascular Exam Cardiovascular Exam: REGULAR RHYTHM, +S1, +S2. absent: Tachycardia - GI/Abdominal Exam GI & Abdominal Exam: Normal Bowel Sounds, Soft. absent: Distended, Firm, Guarding, Tenderness - Extremities Exam Extremities exam: Positive for: normal inspection. Negative for: calf tenderness, pedal edema - Back Exam Back exam: NORMAL INSPECTION. absent: CVA tenderness (L), CVA tenderness (R) - Neurological Exam Neurological exam: Alert, Oriented x3 - Psychiatric Exam Psychiatric exam: Normal Affect, Normal Mood - Skin Skin Exam: Intact, Normal Color Results - Vital Signs Recent Vital Signs: Last Vital Signs Temp 98.6 F 10/08/17 00:25 Pulse 63 10/08/17 00:25 Resp 17 10/08/17 00:25 BP 112/62 10/08/17 00:25 Pulse Ox 100 10/08/17 00:25 - Labs Result Diagrams: 10/07/17 21:29 10/07/17 21:29 Assessment & Plan - Assessment and Plan (Free Text) Assessment: Pneumonia WBC- 11.9 Cxray- full read pending CURB 65- 1 Azithromycin 250mg in NS daily suzanne Robitussin 5ml po q4h prn Ibuprofen 400mg po q8h prn Tylenol 650mg po q6h prn IVF @100mls/hr (NS) Procal pending Acute Exacerbation of COPD Duoneb 3ml IH q8 suzanne Tobacco Use Disorder Educate patient on cessation Nicotine 1 patch TD daily suzanne PPx: GI ppx: Famotidine 40mg po HS DVT ppx: Heparin 5000 units sc q8h <Paola Jones - Last Filed: 10/08/17 06:33> Results - Vital Signs Recent Vital Signs: Last Vital Signs Temp 98.4 F 10/08/17 01:09 Pulse 65 10/08/17 01:09 Resp 20 10/08/17 01:09 BP 115/76 10/08/17 01:09 Pulse Ox 100 10/08/17 00:25 - Labs Result Diagrams: 10/07/17 21:29 10/07/17 21:29 Attending/Attestation - Attestation I have personally seen and examined this patient.: Yes I have fully participated in the care of the patient.: Yes I have reviewed all pertinent clinical information: Yes Notes (Text): No evidence of COPD exacerbation. No official diagnosis of COPD. Need to F/U GI and Pulm as out patient. 10/08/17 06:31
[2017-10-08] MEDS: Sodium Chloride 0.9% 1,000 ML IV SCH ×2 (02:00→21:48)
[2017-10-08 06:42] LABS: BLOOD UREA NITROGEN 16 mg/dL (7-21); CALCIUM 8.7 mg/dL (8.4-10.5); GFR NON-AFRICAN AMERICAN > 60
[2017-10-08 06:48] LABS: BASO # 0.03 K/mm3 (0.0-2.0); BASO % 0.3 % (0.0-3.0); EOS # 0.1 (0.0-0.7); GRAN # 7.29 (1.4-6.5); GRAN % 69.6 % (50.0-68.0); HEMOGLOBIN 13.8 g/dL (14.0-18.0); LYMPH # 2.3 (1.2-3.4); LYMPH % 21.7 % (22.0-35.0); MEAN CELL VOLUME 91.3 fl (80.0-105.0); MEAN CORPUSCULAR HEMOGLOBIN 31.4 pg (25.0-35.0); MEAN CORPUSCULAR HGB CONC 34.4 g/dl (31.0-37.0); MEAN PLATELET VOLUME 8.7 fl (7.0-11.0); MONO # 0.8 (0.1-0.6); MONO % 7.4 % (1.0-6.0); RBC 4.39 10^6/uL (3.5-6.1); RED CELL DISTRIBUTION WIDTH 12.7 % (11.5-14.5); WHITE BLOOD COUNT 10.5 10^3/ul (4.5-11.0)
[2017-10-08] MEDS: Albuterol-Ipratrop 3 mg / 0.5 (3 ml) UD IH SCH ×4 (08:08→23:25)
--- NOTE | 2017-10-08 08:36 | RAD ---
Date of service: 10/07/2017 HISTORY: Sepsis Patient COMPARISON: No prior. FINDINGS: LUNGS: Fibrotic changes in the right base reiterated. No acute pulmonary disease appreciable bilaterally. PLEURA: No significant pleural effusion identified, no pneumothorax apparent. CARDIOVASCULAR: Normal. OSSEOUS STRUCTURES: No significant abnormalities. VISUALIZED UPPER ABDOMEN: Normal. OTHER FINDINGS: None. IMPRESSION: Limited chronic fibrotic changes right base reiterated. No interval acute cardiopulmonary disease appreciable. No acute cardiovascular changes.
--- NOTE | 2017-10-08 09:12 | CARD ---
APPROVED REPORT Date of service: 10/07/2017 EKG Measurement Heart [id number] <Conclusion> Normal sinus rhythm Normal ECG No change
[2017-10-08] MEDS ORDERED: Azithromycin 250 MG in Sodium Chloride 0.9% 250 ML IVPB SCH (10:00)
--- NOTE | 2017-10-08 14:43 | CT ---
Date of service: 10/08/2017 PROCEDURE: CT Chest without contrast HISTORY: copd COMPARISON: CT 08/22/2016. TECHNIQUE: Contiguous axial images were obtained through the chest without intravenous contrast enhancement. Sagittal and coronal reconstructions were performed. Radiation dose (DLP): 174 mGy-cm. This CT exam was performed using one or more of the following dose reduction techniques: Automated exposure control, adjustment of the mA and/or kV according to patient size, and/or use of iterative reconstruction technique. FINDINGS: LUNGS: There is a minimal patchy infiltrate adjacent to the right hilum in the right upper lobe. There is a focal area of consolidation in the right middle lobe adjacent to the anterior chest wall. Findings are suspicious for pneumonia. The previous study showed dense consolidation in the right lower lobe which is no longer seen. MEDIASTINUM: Unremarkable thoracic aorta. No aneurysm. Normal sized heart. Main pulmonary artery unremarkable. No vascular congestion. No lymphadenopathy. PLEURA: No pleural fluid. No pneumothorax. BONES: No fracture. No destructive lesion. UPPER ABDOMEN: Grossly unremarkable. OTHER FINDINGS: None. IMPRESSION: There is a minimal patchy infiltrate adjacent to the right hilum in the right upper lobe. There is a focal area of consolidation in the right middle lobe adjacent to the anterior chest wall. Findings are suspicious for pneumonia.
[2017-10-08] MEDS: Lactobacillus Acidophilus 500 MU Cap PO SCH (17:15)
[2017-10-08] MEDS: guaiFENesin 600 mg ER Tab PO SCH (17:16)
[2017-10-09] MEDS: guaiFENesin DM 100 mg-10 mg/5 ml UD PO PRN ×2 (03:14→11:34)
[2017-10-09 06:55] LABS: BASO # 0.02 K/mm3 (0.0-2.0); BASO % 0.3 % (0.0-3.0); EOS # 0.2 (0.0-0.7); EOS % 3.2 % (1.5-5.0); GRAN # 4.37 (1.4-6.5); HEMOGLOBIN 12.8 g/dL (14.0-18.0); LYMPH # 2.1 (1.2-3.4); LYMPH % 29.4 % (22.0-35.0); MEAN CELL VOLUME 92.8 fl (80.0-105.0); MEAN CORPUSCULAR HEMOGLOBIN 30.9 pg (25.0-35.0); MEAN CORPUSCULAR HGB CONC 33.3 g/dl (31.0-37.0); MEAN PLATELET VOLUME 8.7 fl (7.0-11.0); MONO # 0.4 (0.1-0.6); MONO % 6.1 % (1.0-6.0); RBC 4.14 10^6/uL (3.5-6.1); RED CELL DISTRIBUTION WIDTH 12.7 % (11.5-14.5); WHITE BLOOD COUNT 7.2 10^3/ul (4.5-11.0)
[2017-10-09 07:23] LABS: BLOOD UREA NITROGEN 14 mg/dL (7-21); CALCIUM 8.5 mg/dL (8.4-10.5); GFR NON-AFRICAN AMERICAN > 60
[2017-10-09] MEDS: Albuterol-Ipratrop 3 mg / 0.5 (3 ml) UD IH SCH ×3 (07:40→20:06)
[2017-10-09] MEDS: guaiFENesin 600 mg ER Tab PO SCH ×2 (10:26→18:09)
[2017-10-09] MEDS: Lactobacillus Acidophilus 500 MU Cap PO SCH ×2 (10:26→18:09)
[2017-10-09] MEDS: cefTRIAXone 1 gm 1 GM/100 ML BAG IVPB SCH (10:27)
[2017-10-09] MEDS: Azithromycin 500MG/NS 250ml 500 MG/250 ML BAG IVPB SCH (10:28)
--- NOTE | 2017-10-09 15:19 | CP.PCM.PN ---
<Porfirio Winn - Last Filed: 10/09/17 15:15> Subjective - Date & Time of Evaluation Date of Evaluation: 10/09/17 Time of Evaluation: 07:00 - Subjective Subjective: Porfirio Winn, PGY1 Medicine Progress Note for Dr. Wing Patient seen and examined at bedside this morning. Patient appears well, non- toxic and pleasant. Patient states that symptoms of SOB/dyspnea have significantly improved. Patient is routinely ambulating and tolerating diet well. Patient states that he had a coughing episode at 3 AM this morning, to which he was given a cough medication for. Patient states that the cough medication eradicated his cough and dyspnea. Patient denies fevers, headaches, chest pain, shortness of breath, muscles aches, joint paints, nausea, vomiting, or diarrhea. Vital signs stable. No overnight changes. A Full 12 point ROS was conducted and unremarkable except as stated above. Objective - Vital Signs/Intake and Output Vital Signs (last 24 hours): Temp Pulse Resp BP Pulse Ox 98.1 F 61 20 106/65 95 10/09/17 06:00 10/09/17 06:00 10/09/17 06:00 10/09/17 06:00 10/09/17 06:00 Intake and Output: 10/09/17 10/09/17 06:59 18:59 Intake Total 1200 Balance 1200 - Medications Medications: Current Medications Acetaminophen (Tylenol 325mg Tab) 650 mg PO Q6H PRN PRN Reason: Fever >100.4 F Albuterol/Ipratropium (Duoneb 3 Mg/0.5 Mg (3 Ml) Ud) 3 ml IH Q8 REPLACED BY [facility] Last Admin: 10/09/17 07:40 Dose: 3 ml Famotidine (Pepcid) 40 mg PO HS LUIS Last Admin: 10/08/17 21:47 Dose: 40 mg Guaifenesin (Mucinex La) 600 mg PO BID LUIS Last Admin: 10/09/17 10:26 Dose: 600 mg Guaifenesin/Dextromethorphan (Robitussin Dm) 5 ml PO Q4H PRN PRN Reason: Cough Last Admin: 10/09/17 11:34 Dose: 5 ml Heparin Sodium (Porcine) (Heparin) 5,000 units SC Q8 LUIS PRN Reason: Protocol Last Admin: 10/09/17 05:31 Dose: Not Given Sodium Chloride (Sodium Chloride 0.9%) 1,000 mls @ 100 mls/hr IV .Q10H REPLACED BY [facility] Last Admin: 10/08/17 21:48 Dose: 100 mls/hr Azithromycin (Zithromax 500mg In Ns) 500 mg in 250 mls @ 167 mls/hr IVPB DAILY LUIS PRN Reason: Protocol Stop: 10/14/17 10:01 Last Admin: 10/09/17 10:28 Dose: 167 mls/hr Ceftriaxone Sodium (Rocephin 1 Gram Ivpb) 1 gm in 100 mls @ 100 mls/hr IVPB DAILY LUIS PRN Reason: Protocol Stop: 10/14/17 10:01 Last Admin: 10/09/17 10:27 Dose: 100 mls/hr Ibuprofen (Motrin Tab) 400 mg PO Q8 PRN PRN Reason: Pain, moderate (4-7) Lactobacillus Acidophilus (Bacid Acidophilus) 1 cap PO BID REPLACED BY [facility] Last Admin: 10/09/17 10:26 Dose: 1 cap Nicotine (Nicoderm Cq) 1 patch TD DAILY REPLACED BY [facility] Last Admin: 10/09/17 10:26 Dose: 1 patch - Labs Labs: 10/09/17 06:00 10/09/17 06:00 PT 16.4 SECONDS (9.4-12.5) H 10/07/17 21:29 INR 1.43 10/07/17 21:29 APTT 31.1 Seconds (25.1-36.5) 10/09/17 06:00 - Constitutional Appears: Well, Cachectic - Head Exam Head Exam: ATRAUMATIC, NORMAL INSPECTION, NORMOCEPHALIC - Eye Exam Eye Exam: EOMI, Normal appearance, PERRL Pupil Exam: NORMAL ACCOMODATION, PERRL - ENT Exam ENT Exam: Mucous Membranes Moist, Normal Exam - Neck Exam Neck Exam: Full ROM, Normal Inspection. absent: Lymphadenopathy - Respiratory Exam Respiratory Exam: Clear to Ausculation Bilateral, NORMAL BREATHING PATTERN. absent: Rales, Rhonchi, Wheezes, Respiratory Distress, Stridor - Cardiovascular Exam Cardiovascular Exam: REGULAR RHYTHM, +S1, +S2. absent: Murmur - GI/Abdominal Exam GI & Abdominal Exam: Soft, Normal Bowel Sounds. absent: Tenderness - Extremities Exam Extremities Exam: Full ROM, Normal Capillary Refill, Normal Inspection. absent : Joint Swelling, Pedal Edema - Back Exam Back Exam: NORMAL INSPECTION - Neurological Exam Neurological Exam: Alert, Awake, Oriented x3 Neuro motor strength exam: Left Upper Extremity: 5, Right Upper Extremity: 5, Left Lower Extremity: 5 - Skin Skin Exam: Dry, Intact, Normal Color, Warm Assessment and Plan - Assessment and Plan (Free Text) Assessment: Patient is a 57 y/o M with PMHx of lung nodule, PNA, melena, who presented to the ED for worsening cough with myalgias for several days. Patient says that he went to PMD for workup for lung nodule and GI for possible colonoscopy however appointments were not made and he could not go. Chest CT indicated minimal patchy infiltrate to the right hilum in the right upper lobe, consolidation at right middle lobe with suspicion for pneumonia. Patient admitted for pneumonia. Plan: Community Acquired Pneumonia - Patient lung exam is clear, afebrile, no leukocytosis, asymptomatic - Chest CT (10/08): minimal patchy infilrate to right hilum in right upper lobe. Consolidation at right middle lobe. Suspicion for pneumonia. - CXR: no cardiovascular disease. Limited fibrotic changes at right lung base. - c/w azithromycin - c/w mucinex for cough - ID is consulted, f/u recs - Prior history of PNA in 2017 - Patient should f/u outpatient for assessment of lung nodule - Procalcitonin negative Recently Diagnosed Lung Nodule - Nodule possibly related to malignancy - 35 Pack Year smoking history - Counseled on the importance of quitting smoking, increased risk for lung cancer, may explain new finding of lung nodule - c/w nicotine patch Possible Colorectal cancer - Cachexia, vitals stable - Signs of B symptoms: weight loss, fatigue, night sweats - f/u outpatient with GI for colonoscopy; patient claimed he was scared of the procedure and did not undergo - Patient educated and explained the importance of receiving workup for Colorectal cancer GI ppx: pepcid DVT ppx: Hep SC Dispo: Continue to manage patient on the floor. Patient may be a potential discharge for tomorrow. Requires outpatient followup. Case was discussed and reviewed with Attending Physician Dr. Wing. <Susanne Wing - Last Filed: 10/10/17 14:24> Objective - Vital Signs/Intake and Output Vital Signs (last 24 hours): Temp Pulse Resp BP Pulse Ox 98 F 52 L 18 106/74 98 10/10/17 08:18 10/10/17 08:18 10/10/17 08:18 10/10/17 08:18 10/10/17 08:18 Intake and Output: 10/10/17 10/10/17 06:59 18:59 Intake Total 1200 Balance 1200 - Medications Medications: Current Medications Acetaminophen (Tylenol 325mg Tab) 650 mg PO Q6H PRN PRN Reason: Fever >100.4 F Albuterol/Ipratropium (Duoneb 3 Mg/0.5 Mg (3 Ml) Ud) 3 ml IH Q8 REPLACED BY [facility] Last Admin: 10/10/17 07:56 Dose: 3 ml Famotidine (Pepcid) 40 mg PO HS REPLACED BY [facility] Last Admin: 10/09/17 21:14 Dose: 40 mg Guaifenesin (Mucinex La) 600 mg PO BID REPLACED BY [facility] Last Admin: 10/10/17 10:32 Dose: 600 mg Guaifenesin/Dextromethorphan (Robitussin Dm) 5 ml PO Q4H PRN PRN Reason: Cough Last Admin: 10/10/17 10:33 Dose: 5 ml Heparin Sodium (Porcine) (Heparin) 5,000 units SC Q8 LUIS PRN Reason: Protocol Last Admin: 10/10/17 05:01 Dose: Not Given Sodium Chloride (Sodium Chloride 0.9%) 1,000 mls @ 100 mls/hr IV .Q10H REPLACED BY [facility] Last Admin: 10/08/17 21:48 Dose: 100 mls/hr Azithromycin (Zithromax 500mg In Ns) 500 mg in 250 mls @ 167 mls/hr IVPB DAILY REPLACED BY [facility] PRN Reason: Protocol Stop: 10/14/17 10:01 Last Admin: 10/10/17 10:33 Dose: 167 mls/hr Ceftriaxone Sodium (Rocephin 1 Gram Ivpb) 1 gm in 100 mls @ 100 mls/hr IVPB DAILY REPLACED BY [facility] PRN Reason: Protocol Stop: 10/14/17 10:01 Last Admin: 10/10/17 10:32 Dose: 100 mls/hr Ibuprofen (Motrin Tab) 400 mg PO Q8 PRN PRN Reason: Pain, moderate (4-7) Lactobacillus Acidophilus (Bacid Acidophilus) 1 cap PO BID REPLACED BY [facility] Last Admin: 10/10/17 10:29 Dose: 1 cap Nicotine (Nicoderm Cq) 1 patch TD DAILY LUIS Last Admin: 10/10/17 10:32 Dose: 1 patch - Labs Labs: 10/09/17 06:00 10/09/17 06:00 PT 16.4 SECONDS (9.4-12.5) H 10/07/17 21:29 INR 1.43 10/07/17 21:29 APTT 31.1 Seconds (25.1-36.5) 10/09/17 06:00 Attending/Attestation - Attestation I have personally seen and examined this patient.: Yes I have fully participated in the care of the patient.: Yes I have reviewed all pertinent clinical information, including history, physical exam and plan: Yes Notes (Text): Patient seen and examined by me at 11:15AM with resident 10/09/17. Case including HPI, physical exam, and assessment and plan discussed with resident. Agree with above with following additions/corrections. Patient is a 57-year-old male with past medical history significant for lung nodule, episode of melena, and pneumonia that presents to the emergency room with fevers, chills, headache, and cough. Patient states he is feeling much better. Cough is improved. No more fevers or chills. Headache resolved. Ambulating well. No chest pain or shortness of breath. No dizziness or lightheadedness. No nausea, vomiting, or abdominal pain. No dysuria. No diarrhea or constipation. No blood in the stool. Physical exam: General: Awake and alert, lying in bed in no acute distress, cachectic appearing. HEENT: Normocephalic, atraumatic. Pupils equal and reactive. Extraocular muscles intact. No scleral icterus. Oropharynx is pink and moist. No pharyngeal erythema or exudate appreciated Neck is supple. Cardiovascular: Normal rhythm. Normal S1, S2. No murmurs, rubs, or gallops appreciated Pulmonary: Normal respiratory effort. Decreased breath sounds throughout. No rhonchi, rales or wheezing appreciated. Gastrointestinal: Soft, nondistended. Nontender. Positive bowel sounds all 4 quadrants, no guarding. Musculoskeletal: Normal range of motion all extremities, no calf tenderness, no edema appreciated. Central nervous system: CN2-12 grossly intact. AAO x 3 Dermatologic: Skin warm and dry Assessment and plan: Patient is a 57-year-old male with past medical history significant for lung nodule, episode of melena, and pneumonia that presents to the emergency room with fevers, chills, headache, and cough. 1. Community acquired pneumonia. Chest CT per radiologist shows minimal patchy infiltrate adjacent to the right hilum in the right upper lobe, focal area of consolidation in the right middle lobe adjacent to the anterior chest wall, findings suspicious for pneumonia. Continue with Rocephin and Zithromax. Continue with nebulizer treatments. Placed on Mucinex. Pro-calcitonin 0.06. Patient counseled on tobacco cessation. 2. History of lung nodule. Patient to continue outpatient follow-up for this. Not seen on this chest CT. Patient counseled on tobacco cessation. 3. Questionable history of colorectal cancer. Patient states that he has not followed up for colonoscopy as he has not wanted to have one. He states he does plan to follow-up sometime soon in the future for colonoscopy. Cancer risks and importance of colonoscopy discussed with patient. Patient denies any rectal pain , abdominal pain, or blood in the stool. Case was discussed in detail with patient and patient's mother at bedside regarding current diagnosis and treatment plan.
--- NOTE | 2017-10-09 16:40 | CP.PCM.CON ---
History of Present Illness - History of Present Illness History of Present Illness: Infectious Disease Consultation: October 09, 2017 57 yo male w/ PMHx of lung nodule, episode of melena, and 1 episode of pneumonia a year ago. Patient was to followup with PMD to further workup the lung nodule and GI for possible colonscopy, but the patient did not follow up. Patient states his current cough started 4 days ago with myalgias (most prominent in the leg). Patient states that he felt chills and feverish but never found an actual fever at home. Patient came to the hospital for worsening cough with headaches. He started to feel diaphoretic at 1 pm on . Patient states that his cough is productive with yellow phlegm. Patient rates headache/pain as 10/10. Patient took ibuprofen at home without relief. No reported sick contacts at home. Patient states he had similar episode one year ago after which he decreased his smoking from a pack a day to 2-3 cigarettes daily. Patient without previous COPD or other lung etiology diagnosed but he does not follow with doctors outside of his hospitalizations. PMHx: Hx of lung nodule (19 mm) PSHx: none given Allergies: NKDA Social Hx: 35 pack year history of tobacco use currently at 2-3 cigs per day. No EtOH or illicit drug use. Active Medications Acetaminophen (Tylenol 325mg Tab) 650 mg PO Q6H PRN PRN Reason: Fever >100.4 F Albuterol/Ipratropium (Duoneb 3 Mg/0.5 Mg (3 Ml) Ud) 3 ml IH Q8 [facility] Last Admin: 10/09/17 07:40 Dose: 3 ml Famotidine (Pepcid) 40 mg PO HS [facility] Last Admin: 10/08/17 21:47 Dose: 40 mg Guaifenesin (Mucinex La) 600 mg PO BID [facility] Last Admin: 10/09/17 10:26 Dose: 600 mg Guaifenesin/Dextromethorphan (Robitussin Dm) 5 ml PO Q4H PRN PRN Reason: Cough Last Admin: 10/09/17 11:34 Dose: 5 ml Heparin Sodium (Porcine) (Heparin) 5,000 units SC Q8 [facility] PRN Reason: Protocol Last Admin: 10/09/17 05:31 Dose: Not Given Sodium Chloride (Sodium Chloride 0.9%) 1,000 mls @ 100 mls/hr IV .Q10H [facility] Last Admin: 10/08/17 21:48 Dose: 100 mls/hr Azithromycin (Zithromax 500mg In Ns) 500 mg in 250 mls @ 167 mls/hr IVPB DAILY [facility] PRN Reason: Protocol Stop: 10/14/17 10:01 Last Admin: 10/09/17 10:28 Dose: 167 mls/hr Ceftriaxone Sodium (Rocephin 1 Gram Ivpb) 1 gm in 100 mls @ 100 mls/hr IVPB DAILY [facility] PRN Reason: Protocol Stop: 10/14/17 10:01 Last Admin: 10/09/17 10:27 Dose: 100 mls/hr Ibuprofen (Motrin Tab) 400 mg PO Q8 PRN PRN Reason: Pain, moderate (4-7) Lactobacillus Acidophilus (Bacid Acidophilus) 1 cap PO BID [facility] Last Admin: 10/09/17 10:26 Dose: 1 cap Nicotine (Nicoderm Cq) 1 patch TD DAILY [facility] Last Admin: 10/09/17 10:26 Dose: 1 patch Family Hx: None given ROS: cough productive, headaches, chills, feverish No chest pain, abdominal pain, melena, hematuria, hematemesis, hematochezia, depression, anxiety, diarrhea, vomiting, vision loss, hearing loss, loss of consciousness. Past Patient History - Infectious Disease Hx of Infectious Diseases: None - Past Social History Smoking Status: Current Some Days Smoker - CARDIAC Hx Cardiac Disorders: No - PULMONARY Hx Respiratory Disorders: No - NEUROLOGICAL Hx Neurological Disorder: No - HEENT Hx HEENT Problems: No - RENAL Hx Chronic Kidney Disease: No - ENDOCRINE/METABOLIC Hx Endocrine Disorders: No - HEMATOLOGICAL/ONCOLOGICAL Hx Blood Disorders: No - INTEGUMENTARY Hx Dermatological Problems: No - MUSCULOSKELETAL/RHEUMATOLOGICAL Hx Musculoskeletal Disorders: No - GASTROINTESTINAL Hx Gastrointestinal Disorders: No - GENITOURINARY/GYNECOLOGICAL Hx Genitourinary Disorders: No - PSYCHIATRIC Hx Psychophysiologic Disorder: No Hx Substance Use: No - SURGICAL HISTORY Hx Surgeries: No - ANESTHESIA Hx Anesthesia: No Hx Anesthesia Reactions: No Hx Malignant Hyperthermia: No Meds Allergies/Adverse Reactions: Allergies Allergy/AdvReac Type Severity Reaction Status Date / Time No Known Allergies Allergy Verified 10/07/17 20:46 - Medications Medications: Current Medications Acetaminophen (Tylenol 325mg Tab) 650 mg PO Q6H PRN PRN Reason: Fever >100.4 F Albuterol/Ipratropium (Duoneb 3 Mg/0.5 Mg (3 Ml) Ud) 3 ml IH Q8 [facility] Last Admin: 10/09/17 07:40 Dose: 3 ml Famotidine (Pepcid) 40 mg PO HS [facility] Last Admin: 10/08/17 21:47 Dose: 40 mg Guaifenesin (Mucinex La) 600 mg PO BID [facility] Last Admin: 10/09/17 10:26 Dose: 600 mg Guaifenesin/Dextromethorphan (Robitussin Dm) 5 ml PO Q4H PRN PRN Reason: Cough Last Admin: 10/09/17 11:34 Dose: 5 ml Heparin Sodium (Porcine) (Heparin) 5,000 units SC Q8 [facility] PRN Reason: Protocol Last Admin: 10/09/17 05:31 Dose: Not Given Sodium Chloride (Sodium Chloride 0.9%) 1,000 mls @ 100 mls/hr IV .Q10H [facility] Last Admin: 10/08/17 21:48 Dose: 100 mls/hr Azithromycin (Zithromax 500mg In Ns) 500 mg in 250 mls @ 167 mls/hr IVPB DAILY [facility] PRN Reason: Protocol Stop: 10/14/17 10:01 Last Admin: 10/09/17 10:28 Dose: 167 mls/hr Ceftriaxone Sodium (Rocephin 1 Gram Ivpb) 1 gm in 100 mls @ 100 mls/hr IVPB DAILY [facility] PRN Reason: Protocol Stop: 10/14/17 10:01 Last Admin: 10/09/17 10:27 Dose: 100 mls/hr Ibuprofen (Motrin Tab) 400 mg PO Q8 PRN PRN Reason: Pain, moderate (4-7) Lactobacillus Acidophilus (Bacid Acidophilus) 1 cap PO BID [facility] Last Admin: 10/09/17 10:26 Dose: 1 cap Nicotine (Nicoderm Cq) 1 patch TD DAILY [facility] Last Admin: 10/09/17 10:26 Dose: 1 patch Physical Exam - Constitutional Appears: Non-toxic, No Acute Distress - Head Exam Head Exam: ATRAUMATIC, NORMOCEPHALIC - Eye Exam Eye Exam: EOMI, PERRL Pupil Exam: NORMAL ACCOMODATION, PERRL - ENT Exam ENT Exam: Mucous Membranes Moist, Normal External Ear Exam, TM's Normal Bilaterally - Neck Exam Neck exam: Positive for: Full Rom, Normal Inspection - Respiratory Exam Respiratory Exam: Clear to Auscultation Bilateral, NORMAL BREATHING PATTERN. absent: Rales, Rhonchi, Wheezes - Cardiovascular Exam Cardiovascular Exam: REGULAR RHYTHM, RRR, +S1, +S2 - GI/Abdominal Exam GI & Abdominal Exam: Normal Bowel Sounds, Soft. absent: Distended, Tenderness - Extremities Exam Extremities exam: Positive for: full ROM, normal inspection - Back Exam Back exam: NORMAL INSPECTION - Neurological Exam Neurological exam: Alert, CN II-XII Intact, Oriented x3 - Psychiatric Exam Psychiatric exam: Normal Affect, Normal Mood - Skin Skin Exam: Intact, Normal Color Results - Vital Signs Recent Vital Signs: Last Vital Signs Temp 98.1 F 10/09/17 06:00 Pulse 61 10/09/17 06:00 Resp 20 10/09/17 06:00 BP 106/65 10/09/17 06:00 Pulse Ox 95 10/09/17 06:00 - Labs Result Diagrams: 10/09/17 06:00 10/09/17 06:00 Labs: Laboratory Results - last 24 hr 10/09/17 10/09/17 10/09/17 06:00 06:00 06:00 WBC 7.2 D RBC 4.14 Hgb 12.8 L Hct 38.4 L MCV 92.8 MCH 30.9 MCHC 33.3 RDW 12.7 Plt Count 261 MPV 8.7 Gran % 61.0 Lymph % (Auto) 29.4 [place] % (Auto) 6.1 H Eos % (Auto) 3.2 Baso % (Auto) 0.3 Gran # 4.37 Lymph # (Auto) 2.1 [place] # (Auto) 0.4 Eos # (Auto) 0.2 Baso # (Auto) 0.02 APTT 31.1 Sodium 144 Potassium 4.2 Chloride 110 H Carbon Dioxide 25 Anion Gap 13 BUN 14 Creatinine 0.7 L Est GFR ( Amer) > 60 Est GFR (Non-Af Amer) > 60 Random Glucose 92 Calcium 8.5 Assessment & Plan - Assessment and Plan (Free Text) Assessment: 57 yo male with possible pneumonia. Procalcitonin is negative. Currently on Azithromycin. Presentation of cough and chills. CT scan showing right middle lobe pneumonia. Question of lower right lobe mass on previous CT abd/pelvis studies in 2017 (unclear if this "mass" was the previous consolidation noted on CT chest of the right lower lobe of the lung). May need additional CT Abd/ Pelvis study to see if mass is still there. Can continue on Azithromycin. Would consider addition of Rocephin with a change to Augmentin when ready for discharge. Supportive care Thank you for allowing me to participate in the care of the patient, we will follow with you.
[2017-10-09 17:51] VITALS: RESP 18
[2017-10-10] MEDS: Albuterol-Ipratrop 3 mg / 0.5 (3 ml) UD IH SCH (07:56)
[2017-10-10 08:18] VITALS: BP 106/74; PULSE 52; TEMP 98; O2SAT 98
[2017-10-10] MEDS: Lactobacillus Acidophilus 500 MU Cap PO SCH (10:29)
[2017-10-10] MEDS: guaiFENesin 600 mg ER Tab PO SCH (10:32)
[2017-10-10] MEDS: cefTRIAXone 1 gm 1 GM/100 ML BAG IVPB SCH (10:32)
[2017-10-10] MEDS: Azithromycin 500MG/NS 250ml 500 MG/250 ML BAG IVPB SCH (10:33)
[2017-10-10] MEDS: guaiFENesin DM 100 mg-10 mg/5 ml UD PO PRN (10:33)
--- NOTE | 2017-10-10 13:05 | CP.PCM.DIS ---
Provider - Provider Date of Admission: 10/07/17 23:46 Attending physician: Susanne Wing DO Primary care physician: NO PRIMARY CARE PROVIDER Consults: TYLER Emanuel Time Spent in preparation of Discharge (in minutes): 100 Hospital Course - Lab Results Lab Results: Most Recent Lab Values WBC 7.2 10^3/ul (4.5-11.0) D 10/09/17 06:00 RBC 4.14 10^6/uL (3.5-6.1) 10/09/17 06:00 Hgb 12.8 g/dL (14.0-18.0) L 10/09/17 06:00 Hct 38.4 % (42.0-52.0) L 10/09/17 06:00 MCV 92.8 fl (80.0-105.0) 10/09/17 06:00 MCH 30.9 pg (25.0-35.0) 10/09/17 06:00 MCHC 33.3 g/dl (31.0-37.0) 10/09/17 06:00 RDW 12.7 % (11.5-14.5) 10/09/17 06:00 Plt Count 261 10^3/uL (120.0-450.0) 10/09/17 06:00 MPV 8.7 fl (7.0-11.0) 10/09/17 06:00 Gran % 61.0 % (50.0-68.0) 10/09/17 06:00 Lymph % (Auto) 29.4 % (22.0-35.0) 10/09/17 06:00 [place] % (Auto) 6.1 % (1.0-6.0) H 10/09/17 06:00 Eos % (Auto) 3.2 % (1.5-5.0) 10/09/17 06:00 Baso % (Auto) 0.3 % (0.0-3.0) 10/09/17 06:00 Gran # 4.37 (1.4-6.5) 10/09/17 06:00 Lymph # (Auto) 2.1 (1.2-3.4) 10/09/17 06:00 [place] # (Auto) 0.4 (0.1-0.6) 10/09/17 06:00 Eos # (Auto) 0.2 (0.0-0.7) 10/09/17 06:00 Baso # (Auto) 0.02 K/mm3 (0.0-2.0) 10/09/17 06:00 PT 16.4 SECONDS (9.4-12.5) H 10/07/17 21: INR 1.43 10/07/17 21: APTT 31.1 Seconds (25.1-36.5) 10/09/17 06:00 pO2 30 mm/Hg (30-55) 10/07/17 21: VBG pH 7.40 (7.32-7.43) 10/07/17: VBG pCO2 48.0 (40-60) 10/07/17: VBG HCO3 29.7 mmol/l (21-28) H 10/07/17 21: VBG Total CO2 31.2 mmol.L (22-28) H 10/07/17 21:29 VBG O2 Sat (Calc) 66.4 % (40-65) H 10/07/17 21:29 VBG Base Excess 4.0 mmol/L (0.0-2.0) H 10/07/17 21:29 VBG Potassium 4.0 mmol/L (3.6-5.2) 10/07/17 21: Sodium 139.0 mmol/L (132-148) 10/07/17 21: Chloride 104.0 mmol/L (98-107) 10/07/17: Glucose 91 mg/dl (75-110) 10/07/17 21: Lactate 1.0 mmol/L (0.7-2.1) 10/07/17 21: FiO2 21.0 % 10/07/17 21: Sodium 144 mmol/L (132-148) 10/09/17 06:00 Potassium 4.2 mmol/L (3.6-5.0) 10/09/17 06:00 Chloride 110 mmol/L (98-107) H 10/09/17 06:00 Carbon Dioxide 25 mmol/L (21-33) 10/09/17 06:00 Anion Gap 13 (10-20) 10/09/17 06:00 BUN 14 mg/dL (7-21) 10/09/17 06:00 Creatinine 0.7 mg/dl (0.8-1.5) L 10/09/17 06:00 Est GFR ( Amer) > 60 10/09/17 06:00 Est GFR (Non-Af Amer) > 60 10/09/17 06:00 Random Glucose 92 mg/dL (70-110) 10/09/17 06:00 Calcium 8.5 mg/dL (8.4-10.5) 10/09/17 06:00 Total Bilirubin 0.7 mg/dL (0.2-1.3) 10/07/17 21:29 AST 22 U/L (17-59) 10/07/17 21:29 ALT 16 U/L (7-56) 10/07/17 21: Alkaline Phosphatase 79 U/L (38-126) 10/07/17 21:29 Total Protein 7.1 g/dL (5.8-8.3) 10/07/17 21: Albumin 3.8 g/dL (3.0-4.8) 10/07/17 21:29 Globulin 3.2 gm/dL 10/07/17 21:29 Albumin/Globulin Ratio 1.2 (1.1-1.8) 10/07/17 21:29 Procalcitonin 0.06 NG/ML (0.19-0.49) L 10/07/17 21:29 Venous Blood Potassium 4.0 mmol/L (3.6-5.2) 10/07/17 21:29 - Hospital Course Hospital Course: Upon admission: Mr. Wilkerson is a 57-year old male with a history pneumonia, presented to the emergency department complaining of fever, chills, productive cough, lower extremity myalgias, and pleuritic chest pain for the past couple of days. Patient also reported occasional shortness of breath. In the ED, EKG showed NSR at 76 BPM. CXR showed a right lower lobe infiltrate. Patient was admitted for community acquired pneumonia. Upon admission, Chest CT was done showing minimal patchy infiltrate to right hilum in right upper lobe, consolidation at right middle lobe, and suspicion for pneumonia. Infectious Disease was consulted on the case, recommended supportive care and for the patient to continue on azithromycin, and would consider adding Rocephin. Patient was counseled on importance of smoking cessation secondary to tobaaco use. Patient scheduled for an appointment at the [facility] on October 21, 2017 at 2:30 PM. Patient prescribed a 3-day course of Zithromax, a 5-day course of Cefuroxime , and 7-day course of Probiotics. Patient counseled to start these medications on 10/11/17 and to take as instructed. Patient was told that if symptoms recur to come to the ER. Above is a brief summary of the patient's hospital stay. For a detailed course, please refer to medical records. - Date & Time of H&P Date of H&P: 10/08/17 Time of H&P: 01:25 Discharge Exam - Head Exam Head Exam: ATRAUMATIC, NORMOCEPHALIC - Eye Exam Eye Exam: EOMI Pupil Exam: PERRL - ENT Exam ENT Exam: Mucous Membranes Moist - Respiratory Exam Respiratory Exam: Clear to PA & Lateral, NORMAL BREATHING PATTERN. absent: Wheezes - Cardiovascular Exam Cardiovascular Exam: REGULAR RHYTHM, +S1, +S2. absent: Systolic Murmur - GI/Abdominal Exam GI & Abdominal Exam: Normal Bowel Sounds, Soft. absent: Tenderness - Rectal Exam Rectal Exam: Deferred - Extremities Exam Extremities exam: normal capillary refill, pedal pulses present - Neurological Exam Neurological exam: Alert, Normal Gait, Oriented x3 - Psychiatric Exam Psychiatric exam: Normal Affect, Normal Mood - Skin Skin Exam: Dry, Intact, Normal Color, Warm Discharge Plan - Discharge Medications Prescriptions: Azithromycin [Zithromax] 500 mg PO DAILY 3 Days #3 tab Cefuroxime Axetil [Cefuroxime] 500 mg PO BID 5 Days #10 tablet Lactobacillus Acidophilus [Bacid Acidophilus] 1 cap PO BID 7 Days #14 cap - Follow Up Plan Condition: STABLE Disposition: HOME/ ROUTINE Instructions: Pneumonia, Adult (DC), Community-Acquired Pneumonia, Adult (DC) Additional Instructions: Please follow up at the [facility] October 21, 2017 at 2:30PM. Upon discharge please continue to take your home medications as prescribed. We have prescribed a 3 day course of Zithromax and 5 day course of Cefuroxime. Please start this medication on 10/11/17 and take as instructed. We have prescribed a 7 day course of Probiotics (Bacid), please take this as instructed. If symptoms reoccur, please return to the emergency room. Referrals[place] [facility] [place] [facility] [place] PCP,NO [Primary Care Provider] -
--- NOTE | 2017-10-10 23:11 | CP.PCM.PN ---
Subjective - Date & Time of Evaluation Date of Evaluation: 10/10/17 Time of Evaluation: 12:00 - Subjective Subjective: Infectious Disease Follow Up: October 10, 2017 57 yo male w/ PMHx of lung nodule, episode of melena, and 1 episode of pneumonia a year ago. Patient was to followup with PMD to further workup the lung nodule and GI for possible colonscopy, but the patient did not follow up. Patient states his current cough started 4 days ago with myalgias (most prominent in the leg). Patient states that he felt chills and feverish but never found an actual fever at home. Patient came to the hospital for worsening cough with headaches. He started to feel diaphoretic at 1 pm on . Patient states that his cough is productive with yellow phlegm. Patient rates headache/pain as 10/10. Patient took ibuprofen at home without relief. No reported sick contacts at home. Patient states he had similar episode one year ago after which he decreased his smoking from a pack a day to 2-3 cigarettes daily. Patient without previous COPD or other lung etiology diagnosed but he does not follow with doctors outside of his hospitalizations. Patient feeling better and improving. Objective - Vital Signs/Intake and Output Vital Signs (last 24 hours): Temp Pulse Resp BP Pulse Ox 98 F 52 L 18 106/74 98 10/10/17 08:18 10/10/17 08:18 10/10/17 08:18 10/10/17 08:18 10/10/17 08:18 - Labs Labs: 10/09/17 06:00 10/09/17 06:00 PT 16.4 SECONDS (9.4-12.5) H 10/07/17 21:29 INR 1.43 10/07/17 21:29 APTT 31.1 Seconds (25.1-36.5) 10/09/17 06:00 - Constitutional Appears: Non-toxic, No Acute Distress - Head Exam Head Exam: ATRAUMATIC, NORMOCEPHALIC - Eye Exam Eye Exam: EOMI, PERRL Pupil Exam: NORMAL ACCOMODATION, PERRL - ENT Exam ENT Exam: Mucous Membranes Moist, Normal External Ear Exam, TM's Normal Bilaterally - Neck Exam Neck Exam: Full ROM, Normal Inspection - Respiratory Exam Respiratory Exam: Clear to Ausculation Bilateral, NORMAL BREATHING PATTERN. absent: Rales, Rhonchi, Wheezes - Cardiovascular Exam Cardiovascular Exam: REGULAR RHYTHM, RRR, +S1, +S2 - GI/Abdominal Exam GI & Abdominal Exam: Soft, Normal Bowel Sounds. absent: Distended, Tenderness - Extremities Exam Extremities Exam: Full ROM, Normal Inspection - Neurological Exam Neurological Exam: Alert, Awake, CN II-XII Intact, Oriented x3 - Psychiatric Exam Psychiatric exam: Normal Affect, Normal Mood Assessment and Plan - Assessment and Plan (Free Text) Assessment: 57 yo male with possible pneumonia. Procalcitonin is negative. Currently on Azithromycin. Presentation of cough and chills. CT scan showing right middle lobe pneumonia. Question of lower right lobe mass on previous CT abd/pelvis studies in 2017 (unclear if this "mass" was the previous consolidation noted on CT chest of the right lower lobe of the lung). May need additional CT Abd/ Pelvis study to see if mass is still there. Can continue on Azithromycin. Would consider addition of Rocephin with a change to Augmentin when ready for discharge. Supportive care. Improved. Can be cleared for discharge from ID perspective. Thank you for allowing me to participate in the care of the patient, we will follow with you.
== END 2017-10-10 15:41 | disposition home or self-care (01) | DRG 195 ==
LOC: ED 20:10 → ERH 23:46 → INTOOBSV 10-08 00:12 → OBSVTOIN 10-08 00:12 → ERH 10-08 00:12 → UNDOADMIN 10-08 00:12 → ERH 10-08 00:13 → 3RSO 10-08 00:50 → ERH 10-08 00:50
PROVIDERS: ADMIT Internal Medicine; ATTEND Hospitalist
PROC: 3E0F7GC Introduction of Other Therapeutic Substance into Respiratory Tract, Via Natural or Artificial Opening (ICD-10-PCS; principal; 2017-10-08)
DX: J18.9 Pneumonia, unspecified organism (principal); R91.1 Solitary pulmonary nodule; F17.210 Nicotine dependence, cigarettes, uncomplicated